=== PATIENT | male | born 1990 | race Caucasian/White ===

== ENCOUNTER 2016-11-23 13:02 | Inpatient (IN) | payer OTHER ==
[~2016-11-23] VITALS: Ht 177.8 cm; Wt 95.3 kg
[2016-11-23] MEDS ORDERED: HYDROmorphone INJ 1 MG/ML SYR IV STA ×4 (13:33→16:59)
[2016-11-23] MEDS ORDERED: ONDANSETRON INJ 2 MG/ML 2 ML VIAL IV STA ×2 (13:33→14:08)
[2016-11-23] MEDS ORDERED: VRPSR240 PO (13:36)
[2016-11-23] MEDS ORDERED: POTA1TAB97 PO (13:36)
[2016-11-23] MEDS ORDERED: CHLOTAB3 PO (13:36)
[2016-11-23] MEDS ORDERED: MAGN400T6 PO (13:36)
[2016-11-23] MEDS ORDERED: FURO40TA3 PO (13:36)
[2016-11-23 13:54] LABS: BASO % 0.2 %; BASO ABS # 0.02 K/uL (0-0.2); COMPLETE YES; EOS % 0.9 %; IG% 0.3 %; LYMPH % 10.9 %; LYMPH ABS # 1.23 K/uL (1.2-3.4); MEAN CELL VOLUME 80.6 fL (80-100); MEAN CORPUSCULAR HEMOGLOBIN 28.3 pg (25-34); MEAN CORPUSCULAR HGB CONC 35.1 g/dl (32-36); MEAN PLATELET VOLUME 10.8 fL (7.4-10.4); MONO % 4.2 %; NEUT % 83.5 %; PLATELET COUNT 201 K/uL (130-400); RED BLOOD COUNT 6.08 M/uL (4.7-6.1); WHITE BLOOD COUNT 11.29 K/uL (4.8-10.8)
--- NOTE | 2016-11-23 14:09 | DIAGNOSTIC IMAGING REPORT ---
LEFT SHOULDER MIN 2 VIEWS ROUTINE CLINICAL HISTORY: Evaluate for dislocation or fracture. COMPARISON: None FINDINGS: Alignment of the left acromioclavicular and glenohumeral joints is anatomic. No acute fracture is identified. IMPRESSION: No acute fracture or dislocation of the left shoulder. Electronically signed by: Jhony Perales M.D. 11/23/2016 2:07 PM Dictated Date/Time: 11/23/2016 2:07 PM
[2016-11-23 14:13] LABS: BUN/CREATININE RATIO 4.9 (10-20); CALCIUM 9.1 mg/dl (8.5-10.1); CREATININE 2.5 mg/dl (0.60-1.40); POTASSIUM 3.4 mmol/L (3.5-5.1)
--- NOTE | 2016-11-23 14:53 | DIAGNOSTIC IMAGING REPORT ---
CT LEFT SHOULDER NO CONTRAST CT DOSE: CLINICAL HISTORY: Left shoulder pain status post trauma. High clinical suspicion for fracture. Negative conventional radiographs. TECHNIQUE: Helical images were acquired in the transverse plane. Sagittal and coronal reformatted imaging was performed COMPARISON STUDY: Conventional radiographic study dated to FINDINGS: No pneumothorax is visualized. There are chronic clavicular joint appears unremarkable. No fractures or dislocations the proximal humerus are visualized. There is no evidence of significant joint effusion. There is no evidence for soft tissue hematoma. IMPRESSION: No fractures or dislocations identified. Electronically signed by: Marquise Tubbs M.D. 11/23/2016 2:51 PM Dictated Date/Time: 11/23/2016 2:49 PM
--- NOTE | 2016-11-23 14:57 | DIAGNOSTIC IMAGING REPORT ---
CT OF THE CERVICAL SPINE WITHOUT CONTRAST CLINICAL HISTORY: Fall. Evaluate for fracture. COMPARISON STUDY: No previous studies for comparison. TECHNIQUE: Helical axial images of the cervical spine were obtained without IV contrast. Sagittal and coronal reconstructions were viewed. FINDINGS: No acute fracture is identified. Slight rotation of C1 on C2 is likely positional. There is no prevertebral edema. Disc spaces are preserved. Facet joints are intact. Slight concavity of the superior endplates of T2, T3 and T4 is likely chronic. There is no acute fracture. IMPRESSION: 1. No acute cervical spine fracture. 2. Slight rotation of C1 on C2 which is likely positional. 3. Mild concavity of the superior endplates of T2, T3 and T4. Although age indeterminate, this is probably chronic. Electronically signed by: Jhony Perales M.D. 11/23/2016 2:56 PM Dictated Date/Time: 11/23/2016 2:49 PM
--- NOTE | 2016-11-23 15:57 | DIAGNOSTIC IMAGING REPORT ---
LUMBAR SPINE 5 VIEWS HISTORY: Trauma. Pain. eval for fx COMPARISON: None. FINDINGS: There is no fracture. No subluxation. Disc spaces are preserved. IMPRESSION: No fracture or subluxation within the lumbar spine. Electronically signed by: Silver Ivory M.D. 11/23/2016 3:55 PM Dictated Date/Time: 11/23/2016 3:55 PM
--- NOTE | 2016-11-23 15:59 | DIAGNOSTIC IMAGING REPORT ---
SINGLE VIEW PELVIS CLINICAL HISTORY: Fall. Low back and pelvic pain. FINDINGS: An AP pelvic radiograph is obtained. No prior studies are available for comparison at the time of dictation. The skeletal structures are well mineralized. No fracture is seen in the hips or bony pelvis. The joint spaces of the hips are preserved. The sacroiliac joints are normal. There is a nonobstructed abdominal bowel gas pattern. IMPRESSION: Unremarkable radiographic assessment of the hips and pelvis. Electronically signed by: Shay Blackwell M.D. 11/23/2016 3:58 PM Dictated Date/Time: 11/23/2016 3:55 PM
[2016-11-23] MEDS ORDERED: LABETALOL HCL IV 5 MG/ML 20ML IV STA (16:17)
[2016-11-23] MEDS ORDERED: POLYETHYLENE (MIRALAX) 17 GM PACK PO PRN (17:15)
[2016-11-23] MEDS ORDERED: ALUMINUM/MAGNESIUM/SIMETH (MAALOX MAX) 30 ML UDC PO PRN (17:15)
[2016-11-23] MEDS ORDERED: HYDROmorphone INJ 1 MG/ML SYR IV PRN (17:15)
[2016-11-23] MEDS ORDERED: MoRPHine SULFATE 4 MG/ML 1 ML CARP\\VIAL IV PRN (17:15)
[2016-11-23] MEDS ORDERED: POTASSIUM CHLORIDE 10 MEQ TABCR PO STA (17:19)
[2016-11-23] MEDS: HydrALAZINE HCL 20 MG/ML VIAL IV. PRN (17:44)
[2016-11-23] MEDS: ONDANSETRON INJ 2 MG/ML 2 ML VIAL IV PRN ×2 (17:52→23:51)
--- NOTE | 2016-11-23 18:05 | EMERGENCY ROOM VISIT NOTE ---
History Report prepared by Pete: Oralia Beltrán Under the Supervision of: Dr. Kamran Davalos M.D. First contact with patient: 13:28 Chief Complaint: SHOULDER DISLOCATION Stated Complaint: DISLOCATED L SHOULDER History of Present Illness The patient is a 26 year old male who presents to the Emergency Room with complaints of persistent left shoulder pain that began today prior to arrival. He currently rates his discomfort as a 9/10 in severity. The patient states that today he slipped and fell on sawdust and dislocated his left shoulder. He states that when he fell, it was on to his out-stretched arm. The patient states that his uncle reduced his shoulder for him, but he states that he is still experiencing pain. He states his uncle pulled very hard and did it about 3 or 4 times. He states that he has had a previous shoulder dislocation in 2007. The patient states that he is noticing shooting pain from his left shoulder and into his neck, but denies any neck problems. He states that he typically experiences numbness in his left forearm, but states that today he is noticing numbness to his left hand and left shoulder. The patient states that that the numbness has been worsening since the injury. He additionally notes nausea secondary to the pain. The patient denies any head trauma, headache, neck injury, or back injury. The patient notes a history of Stage IV Kidney Failure and Hypertension. He states that he is currently on Verapamil and is also on Lasix. He states he was on 4 other hypertensive medications but was taken off them several months ago. Source of History: patient Onset: today prior to arrival Position: shoulder (left) Symptom Intensity: 9/10 Quality: other (shooting) Timing: other (persistent) Associated Symptoms: + nausea, + numbness (left shoulder, left hand) Review of Systems See HPI for pertinent positives & negatives. A total of 10 systems reviewed and were otherwise negative. Past Medical & Surgical Medical Problems: (1) ARF (acute renal failure) (2) Chronic renal disease, stage IV (3) Hypertension (4) Hypertensive emergency Family History No pertinent family history stated. Social History Smoking Status: Current Every Day Smoker Marital Status: single Occupation Status: unemployed Current/Historical Medications Scheduled Furosemide (Lasix), 40 MG PO BID Magnesium Oxide (Mag-Ox), 400 MG PO DAILY Potassium Chloride (K-Tab), 40 MEQ PO DAILY Verapamil HCl (Verapamil HCl ER), 240 MG PO DAILY Scheduled PRN Chlorzoxazone (Parafon Forte Dsc), 500 MG PO Q4H PRN for Muscle Spasms Allergies Coded Allergies: Cefaclor (Verified Allergy, Unknown, ., 11/23/16) Codeine (Verified Allergy, Unknown, ., 11/23/16) Ketorolac Tromethamine (Verified Allergy, Unknown, ., 11/23/16) Penicillins (Verified Allergy, Unknown, ., 11/23/16) Tramadol (Verified Allergy, Unknown, ., 11/23/16) Physical Exam Vital Signs Date Time Temp Pulse Resp B/P Pulse Ox O2 Delivery O2 Flow Rate FiO2 11/23/16 17:02 91 12 11/23/16 16:59 151/115 11/23/16 16:49 155/139 11/23/16 16:45 165/121 11/23/16 16:44 77 11/23/16 16:39 176/112 11/23/16 16:01 91 20 185/126 97 11/23/16 14:01 102 18 170/128 96 Room Air 11/23/16 13:26 181/159 11/23/16 13:14 37.2 115 18 218/138 97 Room Air Physical Exam Constitutional: Vital signs reviewed. Severely hypertensive. Eyes: Pupils are equal round reactive to light. Conjunctiva are noninjected. ENT: Pharynx is clear without erythema or exudate. Mucous membranes are moist. Neck supple without meningeal signs. Respiratory: Clear to auscultation bilaterally. Breath sounds are equal bilaterally. Cardiovascular: Tachycardic. Regular rhythm. No rubs or gallops. GI: Soft, nondistended and nontender. Bowel sounds are present. Musculoskeletal: Diffuse tenderness to the left shoulder without deformity. Numbness to the deltoid muscle. The mid forearm and the entire left hand. Normal distal pulses. Unable to assess motor functions secondary to pain. Integumentary: No cyanosis. Neurological: The patient is awake and alert. No focal deficits. Psychiatric: Anxious. Medical Decision & Procedures ER Provider Diagnostic Interpretation: X-ray results as stated below per interpretation by me and the radiologist: Other radiology results as stated below per my review and the radiologist's interpretation: LEFT SHOULDER MIN 2 VIEWS ROUTINE CLINICAL HISTORY: Evaluate for dislocation or fracture. COMPARISON: None FINDINGS: Alignment of the left acromioclavicular and glenohumeral joints is anatomic. No acute fracture is identified. IMPRESSION: No acute fracture or dislocation of the left shoulder. Electronically signed by: Jhony Perales M.D. 11/23/2016 2:07 PM Dictated Date/Time: 11/23/2016 2:[address] LEFT SHOULDER NO CONTRAST CT DOSE: CLINICAL HISTORY: Left shoulder pain status post trauma. High clinical suspicion for fracture. Negative conventional radiographs. TECHNIQUE: Helical images were acquired in the transverse plane. Sagittal and coronal reformatted imaging was performed COMPARISON STUDY: Conventional radiographic study dated to FINDINGS: No pneumothorax is visualized. There are chronic clavicular joint appears unremarkable. No fractures or dislocations the proximal humerus are visualized. There is no evidence of significant joint effusion. There is no evidence for soft tissue hematoma. IMPRESSION: No fractures or dislocations identified. Electronically signed by: Marquise Tubbs M.D. 11/23/2016 2:51 PM Dictated Date/Time: 11/23/2016 2:[address] OF THE CERVICAL SPINE WITHOUT CONTRAST CLINICAL HISTORY: Fall. Evaluate for fracture. COMPARISON STUDY: No previous studies for comparison. TECHNIQUE: Helical axial images of the cervical spine were obtained without IV contrast. Sagittal and coronal reconstructions were viewed. FINDINGS: No acute fracture is identified. Slight rotation of C1 on C2 is likely positional. There is no prevertebral edema. Disc spaces are preserved. Facet joints are intact. Slight concavity of the superior endplates of T2, T3 and T4 is likely chronic. There is no acute fracture. IMPRESSION: 1. No acute cervical spine fracture. 2. Slight rotation of C1 on C2 which is likely positional. 3. Mild concavity of the superior endplates of T2, T3 and T4. Although age indeterminate, this is probably chronic. Electronically signed by: Jhony Perales M.D. 11/23/2016 2:56 PM Dictated Date/Time: 11/23/2016 2:49 PM SINGLE VIEW PELVIS CLINICAL HISTORY: Fall. Low back and pelvic pain. FINDINGS: An AP pelvic radiograph is obtained. No prior studies are available for comparison at the time of dictation. The skeletal structures are well mineralized. No fracture is seen in the hips or bony pelvis. The joint spaces of the hips are preserved. The sacroiliac joints are normal. There is a nonobstructed abdominal bowel gas pattern. IMPRESSION: Unremarkable radiographic assessment of the hips and pelvis. Electronically signed by: Shay Blackwell M.D. 11/23/2016 3:58 PM Dictated Date/Time: 11/23/2016 3:55 PM LUMBAR SPINE 5 VIEWS HISTORY: Trauma. Pain. eval for fx COMPARISON: None. FINDINGS: There is no fracture. No subluxation. Disc spaces are preserved. IMPRESSION: No fracture or subluxation within the lumbar spine. Electronically signed by: Silver Ivory M.D. 11/23/2016 3:55 PM Dictated Date/Time: 11/23/2016 3:55 PM Laboratory Results 11/23/16 13:35 Red Blood Count 6.08, Mean Corpuscular Volume 80.6, Mean Corpuscular Hemoglobin 28.3, Mean Corpuscular Hemoglobin Concent 35.1, Mean Platelet Volume 10.8, Neutrophils (%) (Auto) 83.5, Lymphocytes (%) (Auto) 10.9, Monocytes (%) (Auto) 4.2, Eosinophils (%) (Auto) 0.9, Basophils (%) (Auto) 0.2, Neutrophils # (Auto) 9.44, Lymphocytes # (Auto) 1.23, Monocytes # (Auto) 0.47, Eosinophils # (Auto) 0.10, Basophils # (Auto) 0.02 11/23/16 13:35 Test 11/23/16 13:35 White Blood Count 11.29 K/uL (4.8-10.8) Red Blood Count 6.08 M/uL (4.7-6.1) Hemoglobin 17.2 g/dL (14.0-18.0) Hematocrit 49.0 % (42-52) Mean Corpuscular Volume 80.6 fL (80-100) Mean Corpuscular Hemoglobin 28.3 pg (25-34) Mean Corpuscular Hemoglobin Concent 35.1 g/dl (32-36) Platelet Count 201 K/uL (130-400) Mean Platelet Volume 10.8 fL (7.4-10.4) Neutrophils (%) (Auto) 83.5 % Lymphocytes (%) (Auto) 10.9 % Monocytes (%) (Auto) 4.2 % Eosinophils (%) (Auto) 0.9 % Basophils (%) (Auto) 0.2 % Neutrophils # (Auto) 9.44 K/uL (1.4-6.5) Lymphocytes # (Auto) 1.23 K/uL (1.2-3.4) Monocytes # (Auto) 0.47 K/uL (0.11-0.59) Eosinophils # (Auto) 0.10 K/uL (0-0.5) Basophils # (Auto) 0.02 K/uL (0-0.2) RDW Standard Deviation 39.6 fL (36.4-46.3) RDW Coefficient of Variation 13.6 % (11.5-14.5) Immature Granulocyte % (Auto) 0.3 % Immature Granulocyte # (Auto) 0.03 K/uL (0.00-0.02) Anion Gap 9.0 mmol/L (3-11) Est Creatinine Clear Calc Drug Dose 52.0 ml/min Estimated GFR () 39.3 Estimated GFR (Non- 33.9 BUN/Creatinine Ratio 4.9 (10-20) Calcium Level 9.1 mg/dl (8.5-10.1) Laboratory results as reviewed by me. Medications Administered Medications (Trade) Dose Ordered Sig/Bulmaro Route Start Time Stop Time Status Last Admin Dose Admin Hydromorphone HCl (Dilaudid Inj) 0.5 mg NOW STAT IV 11/23/16 13:33 11/23/16 13:34 DC 11/23/16 13:44 0.5 MG Ondansetron HCl (Zofran Inj) 4 mg NOW STAT IV 11/23/16 13:33 11/23/16 13:34 DC 11/23/16 13:43 4 MG Hydromorphone HCl (Dilaudid Inj) 0.5 mg NOW STAT IV 11/23/16 14:08 11/23/16 14:09 DC 11/23/16 14:20 0.5 MG Ondansetron HCl (Zofran Inj) 4 mg NOW STAT IV 11/23/16 14:08 11/23/16 14:09 DC 11/23/16 14:18 4 MG Hydromorphone HCl (Dilaudid Inj) 0.5 mg NOW STAT IV 11/23/16 15:20 11/23/16 15:21 DC 11/23/16 16:02 0.5 MG Labetalol HCl (Normodyne IV) 10 mg NOW STAT IV 11/23/16 16:17 11/23/16 16:18 DC 11/23/16 16:41 10 MG Hydromorphone HCl (Dilaudid Inj) 0.5 mg NOW STAT IV 11/23/16 16:59 11/23/16 17:00 DC 11/23/16 17:05 0.5 MG Ondansetron HCl (Zofran Inj) 4 mg Q6H PRN IV 11/23/16 17:15 12/23/16 17:14 11/23/16 17:52 4 MG Hydromorphone HCl (Dilaudid Inj) 1 mg Q2H PRN IV 11/23/16 17:15 12/07/16 17:14 11/23/16 17:44 1 MG Potassium Chloride (Klor-Con M10) 20 meq NOW STAT PO 11/23/16 17:19 11/23/16 17:35 DC 11/23/16 17:52 20 MEQ Hydralazine HCl (HydrALAZINE INJ) 25 mg Q6H PRN IV. 11/23/16 17:30 12/23/16 17:29 11/23/16 17:44 25 MG ECG Indication: other Rate (beats per minute): 104 Rhythm: sinus tachycardia Findings: no acute ischemic change, no ectopy Comparison ECG Date: no prior available ED Course 1329: The patient was evaluated in room B1. A complete history and physical exam was performed. 1333: Ordered Zofran Inj 4 mg IV, Dilaudid Inj 0.5 mg IV. 1408: I reevaluated the patient and his pain worsened after the x-ray. Ordered Zofran Inj 4 mg IV, Dilaudid Inj 0.5 mg IV. 1424: I reevaluated the patient and he is going to a CT scan. 1519: I reevaluated the patient and he cannot feel his entire left arm and he has difficulty moving it. The patient is unsure if it is from pain or if he cannot use it. I discussed the lab findings and states that his last creatinine was 2.1 a week ago. He is additionally complaining of back and buttock pain. 1520: Ordered Dilaudid Inj 0.5 mg IV. 1617: I reevaluated the patient and his blood pressure is 176/130 and he still cannot move his left arm. Ordered Labetalol HCl 10 mg IV. 1625: I discussed the patients case with Soctt Guillermo [facility] YIEMI. He is going to talk to Dr. El about the case. 1640: I rediscussed the patients case with Scott Guill[facility] YEIMI. He states that Dr. El recommended an nonemergent MRI of the neck and shoulder to rule out brachial plexus injury. 1645: I reevaluated the patient and he is still experiencing hypertension. I discussed the treatment plan with him and he verbalized complete understanding and agreement. He will be evaluated for further treatment. 1658: I discussed the patients case with Dr. Tom [facility] [place]. He is going to evaluate the patient for further treatment. 1659: Ordered Dilaudid Inj 0.5 mg IV. Medical Decision This is a 26-year-old male who presents with left shoulder pain, numbness to the left arm and high blood pressure. Differential diagnosis includes shoulder dislocation, fracture, brachial plexus injury, cervical injury, hypertensive emergency. I did perform a limited focused review of portions of the patient's old chart on the electronic medical record. The patient has had no prior visits I did evaluate the patient as noted above. The patient fell today after slipping on sawdust. He fell onto his left outstretched hand. He felt like his arm was dislocated. He did have numbness to the hand and arm and his uncle attempted to relocate the arm about 3 or 4 times. He did so very forcefully and he believes that he was able to get his shoulder back in. He continues have significant pain to the left shoulder but denies any other injury. On examination his distal pulses are intact but he has numbness to his left hand, forearm and upper arm as well. He is unable to cooperate with motor examination. He is very weakly able to give a thumbs up, make an okay sign and spread his fingers apart. IV access was established. The patient was placed on a continuous quality assurance monitor chassis. He is severely hypertensive. It is unclear whether this is secondary to pain. He was given Dilaudid 0.5 mg IV and Zofran IV. I did order and personally review the patient's x-rays as described above. There does not appear to be any fracture or dislocation. The patient had persistent pain and neurologic deficits. I did order a CT of the cervical spine and shoulder. I did review the images myself as well as the radiology report as described above. There is no acute abnormality on CT scanning. I did discuss the case with the [facility] who suggested a nonemergent MRI of the neck and shoulder to rule out brachial plexus injury. I did order and review the patient's blood work as noted in the electronic medical record. He does have a creatinine of 2.5. He states that his baseline is about 1.8 although about a week ago it was 2.1. I did treat the patient with multiple doses of Dilaudid IV. He is also given labetalol IV and his blood pressure remained significantly elevated and he continues have pain. He will be hospitalized for further management of his severe hypertension, assessment of his kidney function as well as pain control. He will have an MRI once he is able to tolerate it. I did discuss the case with the hospitalist and case loader operator. Consults Time Called: 1620 Consulting Physician: Scott Guillermo [facility] YEIMI Returned Call: [phone] I discussed the patients case with Scott Guillermo [facility] TERRY Aponte. He is going to talk to Dr. El about the case. Additional Consults: Time Called: 1650 Consulted Physician: TEOFILO Solano Returned Call: [phone] Additional Comments: I discussed the patients case with TEOFILO Solano. He is going to evaluate the patient for further treatment. Impression Primary Impression: Hypertensive emergency Additional Impressions: [id number] kidney injury Left shoulder pain Left arm numbness Left arm weakness Critical Care I have personally spent more than 30 minutes of critical care time in the direct management of this patient. This includes bedside care, interpretation of diagnostic studies and testing, discussion with consultants and patient, and other required patient management activities. This time is in excess of all separately billable procedures. Scribe Attestation The scribe's documentation has been prepared under my direct and personally reviewed by me in its entirety. I confirm that the note above accurately reflects all work, treatment, procedures, and medical decision making performed by me. Departure Information Dispostion Being Evaluated By Hospitalist Problem Qualifiers
[2016-11-23 18:07] VITALS: O2SAT 95
[2016-11-23 18:35] LABS: MAGNESIUM 2.1 mg/dl (1.8-2.4); PHOSPHORUS 1.6 mg/dl (2.5-4.9); THYROID STIMULATING HORMONE 0.782 uIu/ml (0.300-4.500)
[2016-11-23 18:47] VITALS: BP 180/125; PULSE 108; TEMP 36.8; Ht 177.8 cm; Wt 95.3 kg
[2016-11-23] MEDS ORDERED: HYDROmorphone INJ 2 MG/ML SYR/VIAL ONE (19:30)
--- NOTE | 2016-11-23 19:43 | HISTORY & PHYSICAL EXAMINATION ---
DATE OF ADMISSION: 11/23/2016 CHIEF COMPLAINT: Left shoulder pain. HISTORY OF PRESENT ILLNESS: This is a 26-year-old male who presents to Emergency Room complaining of left shoulder pain that started this morning. 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 Currently, the patient is still experiencing pain, about 8-9/10 in severity with associated numbness and weakness in his left hand. The patient complains of losing sensation in his left hand. He stated that he also had a previous shoulder dislocation in 2007. About 6 years ago, he was transferred to [facility] due to receiving IV infusions of potassium, resulting in compartment syndrome, after which he had some problems in his left forearm. He denies any neck pain, any fever. He stated that he typically experiences numbness in his left forearm, but today he was not noticing numbness spreading up to his left shoulder. He also has associated nausea secondary to pain. He denies any head trauma, neck injury, back injury. He mentions that he has a stage IV chronic kidney disease with baseline creatinine of 1.8 and the last creatinine was checked 2 weeks ago, was 2.0. He was followed by 2 nephrologists, one was Dr. Flowers at [place] and Dr. Way at [place], [place] for kidney failure and hypertension. The patient states that he is currently on verapamil and Lasix to treat his hypertension. REVIEW OF SYSTEMS: Negative except as above. Ten out of 14 systems were reviewed. PAST MEDICAL HISTORY: Chronic kidney disease stage IV, hypertension, shoulder dislocation. FAMILY HISTORY: Significant for coronary artery disease, diabetes, cancer. SOCIAL HISTORY: Smokes between 4 cigarettes to 20 cigarettes a day, depending on the day. 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 ALLERGIES: HE IS ALLERGIC TO CEFACLOR, CODEINE, KETOROLAC, PENICILLIN, TRAMADOL. CURRENT MEDICATIONS: He is on furosemide 40 mg p.o. b.i.d., magnesium oxide 400 mg p.o. daily, potassium 40 mEq p.o. daily, verapamil 240 mg p.o. daily, chlorzoxazone 500 mg p.o. q. 4 hours p.r.n. muscle spasm. PHYSICAL EXAMINATION: VITAL SIGNS: Temperature 37.2, pulse 77, respirations 20, blood pressure 185/126, 97% on room air. GENERAL: In mild distress. HEENT: Normocephalic, atraumatic. PERRLA, EOMI. Mouth moist, no lesions. NECK: No JVD. Trachea midline. Thyroid is not enlarged. LUNGS: Clear to auscultation bilateral. No wheezes, no rhonchi. HEART: S1, S2, RRR. ABDOMEN: Soft, nontender, nondistended. Bowel sounds present bilateral. MUSCULOSKELETAL: Diffuse tenderness in the left shoulder and numbness to deltoid muscle. He is wearing a sling to his left arm. He has normal distal pulses; however, unable to assess his motor function because of pain and the fact that he has a sling; however, he has no sensation to his fingers. He has no CVA tenderness. SKIN: No rash. No jaundice. PSYCHIATRIC: Mood and judgment are normal. DIAGNOSTIC INTERPRETATION: CT left shoulder with no contrast, no fractures or dislocations. X-ray, no acute fracture or dislocations. Pelvis was unremarkable radiographic assessment. Lumbar spine imaging no fracture or subluxation. LABS: White count of 11.2, hemoglobin of 7.2, platelets 201. Sodium 143, potassium 3.4, chloride 108, CO2 26, BUN of 12, creatinine of 2.5 and his baseline of 1.8, glucose of 94, anion gap of 9.0, calcium 9.1. EKG was not done. ASSESSMENT AND PLAN: A 26-year-old male who comes with left shoulder pain after falling down. 1. Left shoulder pain, suspect left brachial plexus injury. IV analgesia. Consult orthopedics. Check MRI of his left shoulder. Physical therapy evaluation and treatment, continue wearing a sling. 2. Hypertensive emergency with underlying acute renal failure. We will hold his Lasix. We will avoid any nephrotoxic medicines. We will start him on Coreg 3.125 mg p.o. b.i.d. and hydralazine 25 mg IV q. 6 hours p.r.n. systolic blood pressure above 160 mmhg. Note that patient came with blood pressure of 218/138 mmhg and according to guidelines, need not to decrease blood pressure more than 20% in the first 6 hours. Therefore, we will shoot for a blood pressure currently no less than 160 mmhg and then gradually decrease it to more appropriate levels. Continue verapamil 240 mg p.o. daily. 3. Acute renal failure on top of chronic kidney disease stage IV, hold Lasix. Consult nephrology. Check urinalysis. Check random urine creatinine, microalbuminuria, urine electrolytes, magnesium, creatine phosphokinase, phosphorus, TSH. 4. Nicotine addiction. Start patient on 14 mg of patch, take off at night. 5. Deep venous thrombosis prophylaxis is not required. The patient is a full code. TIME SPENT ON DOING THIS ADMISSION: 40 minutes. GYPSY
[2016-11-23 20:27] VITALS: BP 198/133
[2016-11-23] MEDS: CARVEDILOL 3.125 MG TAB PO SCH (20:29)
[2016-11-23] MEDS ORDERED: LORAZEPAM 2 MG/ML 1 ML VIAL IV STA (20:41)
[2016-11-23 21:15] LABS: URINE APPEARANCE CLEAR (CLEAR); URINE BILIRUBIN NEG (NEG); URINE COLOR YELLOW; URINE NITRITE NEG (NEG); URINE SPECIFIC GRAVITY 1.005 (1.000-1.030); UROBILINOGEN NEG (NEG); ZZUR CULT IF INDIC CLEAN CATCH NO
[2016-11-23 21:16] LABS: MANUAL MICROSCOPIC REQUIRED? NO; REVIEW REQ? NO
[2016-11-23 21:35] VITALS: BP 191/132
[2016-11-23] MEDS: HYDROmorphone INJ 1 MG/ML SYR IV PRN ×2 (21:41→23:41)
[2016-11-23] MEDS: CHLORZOXAZONE 500 MG TAB PO PRN (23:00)
[2016-11-23] MEDS: ACETAMINOPHEN 325 MG TAB PO PRN (23:13)
[2016-11-23 23:47] VITALS: BP 187/99; PULSE 109; TEMP 36.7; O2SAT 96
[2016-11-23] MEDS ORDERED: DiphenhydrAMINE HCL 50 MG/ML VIAL IV STA (23:54)
[2016-11-23] MEDS ORDERED: DiphenhydrAMINE HCL 50 MG/ML VIAL ONE (23:59)
[2016-11-24] VITALS (9 sets, daily range): BP systolic 155–204; BP diastolic 93–154; PULSE 86–112; TEMP 36.5–37.1; O2SAT 94–99
[2016-11-24] MEDS: HydrALAZINE HCL 20 MG/ML VIAL IV. PRN (00:02)
[2016-11-24] MEDS ORDERED: LORAZEPAM 2 MG/ML 1 ML VIAL ONE (01:28)
[2016-11-24] MEDS ORDERED: NURSING VERBAL MED ORDER ONE (01:30)
[2016-11-24] MEDS: HYDROmorphone INJ 1 MG/ML SYR IV PRN ×2 (01:39→07:47)
[2016-11-24] MEDS ORDERED: LORAZEPAM 2 MG/ML 1 ML VIAL IV STA (01:44)
[2016-11-24] MEDS ORDERED: DiphenhydrAMINE HCL 50 MG/ML VIAL IV STA (02:58)
--- NOTE | 2016-11-24 03:24 | Progress Note ---
Progress Note reviewed PDMP Patient has multiple prescriptions from [place], [place], [place] etc suspicious for opiate abuse
[2016-11-24 04:22] LABS: BENZODIAZEPINE, URINE NEG (NEG); COCAINE,URINE NEG (NEG); PHENCYCLIDINE, URINE NEG (NEG)
[2016-11-24 07:13] LABS: BASO % 0.2 %; BASO ABS # 0.02 K/uL (0-0.2); COMPLETE YES; EOS % 1.8 %; HEMATOCRIT 46.6 % (42-52); IG% 0.3 %; LYMPH % 14.1 %; LYMPH ABS # 1.61 K/uL (1.2-3.4); MEAN CELL VOLUME 81.6 fL (80-100); MEAN CORPUSCULAR HGB CONC 34.3 g/dl (32-36); MEAN PLATELET VOLUME 10.6 fL (7.4-10.4); MONO % 9.8 %; NEUT % 73.8 %; PLATELET COUNT 163 K/uL (130-400); RED BLOOD COUNT 5.71 M/uL (4.7-6.1); WHITE BLOOD COUNT 11.42 K/uL (4.8-10.8)
[2016-11-24 07:39] LABS: BUN/CREATININE RATIO 5.4 (10-20); CALCIUM 8.7 mg/dl (8.5-10.1); CREATININE 2.4 mg/dl (0.60-1.40); POTASSIUM 3.7 mmol/L (3.5-5.1)
[2016-11-24] MEDS: VERAPAMIL HCL 240 MG TABCR PO SCH (07:48)
[2016-11-24] MEDS: CARVEDILOL 3.125 MG TAB PO SCH (07:49)
[2016-11-24] MEDS: NICOTINE 14 MG/24 HR TDSY TD SCH (07:49)
--- NOTE | 2016-11-24 08:11 | DIAGNOSTIC IMAGING REPORT ---
MRI OF THE LEFT SHOULDER CLINICAL HISTORY: Left shoulder dislocation. COMPARISON STUDY: CT scan of left shoulder dated 11/23/2016. TECHNIQUE: MRI of the left shoulder was performed utilizing various T1 and T2 weighted sequences in the axial, sagittal, coronal planes. IV contrast was not administered for this examination. The examination is degraded by motion artifact. FINDINGS: Rotator cuff: There is mild tendinopathy of the supraspinatous tendon. The supraspinatous and infraspinatus tendons appear intact. The teres minor and subscapularis tendons are preserved. There is trace subdeltoid bursal fluid. The acromioclavicular joint is unremarkable. Biceps tendon: The long head of the biceps tendon is normal in signal intensity and located within the bicipital groove. The anchor is maintained. Labrum: There is a large SLAP tear of the glenoid labrum with detachment of the anterior labrum. A soft tissue Bankart lesion is identified with periosteal stripping from the anterior glenoid. Shoulder joint: There is trace joint effusion. The articular cartilage over the glenoid appears maintained. There is minimal edema identified in the posterior humeral head, which could represent minimal contusion versus mild arthritic change. No Hill-Sachs lesion is seen. Musculature and soft tissues: The musculature of the shoulder is normal in bulk and signal intensity. No atrophy is seen. IMPRESSION: 1. Significantly motion degraded examination. 2. The rotator cuff appears intact. 3. There is a large SLAP tear of the glenoid labrum. 4. There is evidence of a soft tissue Bankart lesion with detachment of the anterior labrum and periosteal stripping. 5. Minimal contusion is suggested in the posterior humeral head. No Hill-Sachs lesion is seen. Electronically signed by: Shay Blackwell M.D. 11/24/2016 8:10 AM Dictated Date/Time: 11/24/2016 8:03 AM
[2016-11-24] MEDS ORDERED: POTASSIUM CHLORIDE 20 MEQ TABCR PO SCH (09:00)
[2016-11-24] MEDS ORDERED: MAGNESIUM OXIDE 400 MG TAB PO SCH (09:00)
[2016-11-24] MEDS ORDERED: LABETALOL HCL IV 5 MG/ML 20ML ONE (09:44)
[2016-11-24] MEDS ORDERED: LABETALOL HCL IV 5 MG/ML 20ML IV STA (09:45)
--- NOTE | 2016-11-24 09:54 | Medical Consult ---
Consultation Date of Consultation: Nov 24, 2016. Attending Physician: Daniel Andrew D.O. 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 Sustained a fall on an outstretched arm yesterday injury his left upper extremity. He sustained a dislocation while wrestling in high school and was successfully reduced by the ATC with one attempt. No further issues with his upper extremity since that occurrence. Yesterday's injury resulted in a left shoulder dislocation. His uncle was a former medic and attempted the reduction. Four attempts were made to reduce the left shoulder and was successful the final attempt. Since his reduction yesterday he has decreased sensation in the left upper extremity from the elbow to the fingers. He reports having some feeling in the proximal arm. His past medical history is rather lengthy and complicated with history of kidney failure, autoimmune disease, CVA x 2, and is currently hypertensive at 189/113, leading to this admission. 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 The patient is unable to determine whether left lower extremity weakness is currently due to new findings or was baseline for him in the past CVAs. Past Medical/Surgical History Medical Problems: (1) [id number] kidney injury Status: Acute (2) Left arm numbness Status: Acute (3) Left arm weakness Status: Acute (4) Left shoulder pain Status: Acute Social History Smoking Status: Current Every Day Smoker Marital Status: single Occupation Status: unemployed Allergies Coded Allergies: Cefaclor (Verified Allergy, Unknown, ., 11/23/16) Codeine (Verified Allergy, Unknown, ., 11/23/16) Ketorolac Tromethamine (Verified Allergy, Unknown, ., 11/23/16) Penicillins (Verified Allergy, Unknown, ., 11/23/16) Tramadol (Verified Allergy, Unknown, ., 11/23/16) Current Inpatient Medications Current Inpatient Medications Medications (Trade) Dose Ordered Sig/Bulmaro Route Start Time Stop Time Status Last Admin Dose Admin Chlorzoxazone (Paraflex Tab) 500 mg Q4H PRN PO 11/23/16 17:15 12/23/16 17:14 11/23/16 23:00 500 MG Magnesium Oxide (Mag-Ox Tab) 400 mg DAILY PO 11/24/16 09:00 12/24/16 08:59 11/24/16 07:48 400 MG Verapamil HCl (Calan-Sr Tab) 240 mg DAILY PO 11/24/16 09:00 12/24/16 08:59 11/24/16 07:48 240 MG Potassium Chloride (Klor-Con Tab) 40 meq DAILY PO 11/24/16 09:00 12/24/16 08:59 11/24/16 07:48 40 MEQ Acetaminophen (Tylenol Tab) 650 mg Q4H PRN PO 11/23/16 17:15 12/23/16 17:14 11/23/16 23:13 650 MG Al Hydrox/Mg Hydrox/Simethicone (Maalox Max Susp) 15 ml Q4H PRN PO 11/23/16 17:15 12/23/16 17:14 Ondansetron HCl (Zofran Inj) 4 mg Q6H PRN IV 11/23/16 17:15 12/23/16 17:14 11/23/16 23:51 4 MG Morphine Sulfate (MoRPHine SULFATE INJ) 4 mg Q2H PRN IV 11/23/16 17:15 12/07/16 17:14 11/23/16 19:04 4 MG Polyethylene (Miralax Powder Packet) 17 gm DAILY PRN PO 11/23/16 17:15 12/23/16 17:14 Hydralazine HCl (HydrALAZINE INJ) 25 mg Q6H PRN IV. 11/23/16 17:30 12/23/16 17:29 11/24/16 00:02 25 MG Carvedilol (Coreg Tab) 3.125 mg BID PO 11/23/16 21:00 12/23/16 20:59 11/24/16 07:49 3.125 MG Nicotine (Nicoderm Cq 14MG Patch) 1 patch QAM TD 11/24/16 09:00 12/24/16 08:59 Miscellaneous (Remove Nicoderm Patch) 1 ea HS N/A 11/23/16 21:00 12/23/16 20:59 Hydromorphone HCl 2 mg 2 mg Q2H PRN IV 11/23/16 21:15 12/07/16 21:14 11/24/16 07:47 2 MG Promethazine HCl/ Sodium Chloride (Phenergan Inj/ Nss 50ml) 50.5 ml @ 204 mls/hr Q6H PRN IV 11/24/16 00:00 12/24/16 00:00 Review of Systems The patient currently denies headache, chest pain, shortness of breath, fever, chills, night sweats, weight loss/gain, calf pain, numbness or tingling in the lower extremities Constitutional: + problem reported (left upper extremity ), + weakness, No chills, No fatigue, No fever, No sweats, No weight loss Respiratory: No cough, No dyspnea at rest, No dyspnea on exertion, No hemoptysis, No problem reported, No shortness of breath, No sputum, No wheezing Cardiovascular: No PND, No chest pain, No claudication, No edema, No orthopnea , No palpitations, No problem reported Musculoskeletal: + joint pain (left shoulder pain s/p reduction attempt x 4), No calf pain, No muscle pain, No problem reported, No swelling Integumentary: + problem reported (multiple tattoos noted on upper/lower extremities ), No bleeding, No color change, No itch, No new/changing skin lesions, No rash Physical Exam Date Time Temp Pulse Resp B/P Pulse Ox O2 Delivery O2 Flow Rate FiO2 11/24/16 07:40 36.9 112 16 191/125 98 Room Air 11/24/16 04:00 Room Air 11/24/16 03:30 36.5 110 19 178/108 94 Room Air 11/24/16 00:00 Room Air 11/23/16 23:47 36.7 109 22 187/99 96 Room Air 11/23/16 21:35 191/132 11/23/16 20:27 198/133 11/23/16 20:01 Room Air 11/23/16 18:47 36.8 108 16 180/125 Room Air 11/23/16 18:08 129/112 11/23/16 18:07 111 15 95 11/23/16 17:58 172/133 11/23/16 17:48 169/117 11/23/16 17:39 173/124 11/23/16 17:37 85 15 96 11/23/16 17:29 150/122 11/23/16 17:19 171/110 11/23/16 17:09 162/116 11/23/16 17:07 97 20 97 11/23/16 17:02 91 12 11/23/16 16:59 151/115 11/23/16 16:49 155/139 11/23/16 16:45 165/121 11/23/16 16:44 77 11/23/16 16:39 176/112 11/23/16 16:01 91 20 185/126 97 11/23/16 14:01 102 18 170/128 96 Room Air 11/23/16 13:26 181/159 11/23/16 13:14 37.2 115 18 218/138 97 Room Air General Appearance: + mild distress Eyes: + pertinent finding (Droopy left eyelid) Extremities/Musculoskelatal: normal inspection, normal capillary refill, no pedal edema, + pertinent finding (mild tenderness left cervical paraspinal muscle tenderness, left shoulder tendernss globally, tender ulnar nerve/groove, notable cervical pain with pass ROM left wrist, decreased ROM of the left elbow , motor function revealed but certainly decreased comparted to the contralateral extremity, no gross deformity on inspection, ) Neurologic/Psych: alert, oriented x 3, + sensory deficit (distal left upper extremity, reports no feeling appreciated with light touch from the elbow distally, light toch over the deltoid is appreciated yet decreased) Skin: normal color, warm/dry, no rash Laboratory Results Last 24 Hours Test 11/23/16 13:35 11/23/16 20:45 11/24/16 03:15 11/24/16 06:53 White Blood Count 11.29 K/uL 11.42 K/uL Red Blood Count 6.08 M/uL 5.71 M/uL Hemoglobin 17.2 g/dL 16.0 g/dL Hematocrit 49.0 % 46.6 % Mean Corpuscular Volume 80.6 fL 81.6 fL Mean Corpuscular Hemoglobin 28.3 pg 28.0 pg Mean Corpuscular Hemoglobin Concent 35.1 g/dl 34.3 g/dl Platelet Count 201 K/uL 163 K/uL Mean Platelet Volume 10.8 fL 10.6 fL Neutrophils (%) (Auto) 83.5 % 73.8 % Lymphocytes (%) (Auto) 10.9 % 14.1 % Monocytes (%) (Auto) 4.2 % 9.8 % Eosinophils (%) (Auto) 0.9 % 1.8 % Basophils (%) (Auto) 0.2 % 0.2 % Neutrophils # (Auto) 9.44 K/uL 8.43 K/uL Lymphocytes # (Auto) 1.23 K/uL 1.61 K/uL Monocytes # (Auto) 0.47 K/uL 1.12 K/uL Eosinophils # (Auto) 0.10 K/uL 0.21 K/uL Basophils # (Auto) 0.02 K/uL 0.02 K/uL RDW Standard Deviation 39.6 fL 41.9 fL RDW Coefficient of Variation 13.6 % 14.2 % Immature Granulocyte % (Auto) 0.3 % 0.3 % Immature Granulocyte # (Auto) 0.03 K/uL 0.03 K/uL Sodium Level 143 mmol/L 141 mmol/L Potassium Level 3.4 mmol/L 3.7 mmol/L Chloride Level 108 mmol/L 108 mmol/L Carbon Dioxide Level 26 mmol/L 25 mmol/L Anion Gap 9.0 mmol/L 8.0 mmol/L Blood Urea Nitrogen 12 mg/dl 13 mg/dl Creatinine 2.50 mg/dl 2.40 mg/dl Est Creatinine Clear Calc Drug Dose 52.0 ml/min 84.6 ml/min Estimated GFR () 39.3 41.3 Estimated GFR (Non- 33.9 35.6 BUN/Creatinine Ratio 4.9 5.4 Random Glucose 94 mg/dl 96 mg/dl Calcium Level 9.1 mg/dl 8.7 mg/dl Phosphorus Level 1.6 mg/dl Magnesium Level 2.1 mg/dl Total Creatine Kinase 114 U/L Thyroid Stimulating Hormone (TSH) 0.782 uIu/ml Urine Color YELLOW Urine Appearance CLEAR Urine pH 6.0 Urine Specific [place] 1.005 Urine Protein 2+ Urine Glucose (UA) NEG Urine Ketones NEG Urine Occult Blood NEG Urine Nitrite NEG Urine Bilirubin NEG Urine Urobilinogen NEG Urine Leukocyte Esterase NEG Urine WBC (Auto) 1-5 /hpf Urine RBC (Auto) 0-4 /hpf Urine Hyaline Casts (Auto) 0 /lpf Urine Epithelial Cells (Auto) 5-10 /lpf Urine Bacteria (Auto) NEG Urine Random Creatinine 56.0 mg/dl Urine Random Microalbumin 1130.0 mg/L Urine Random Sodium 69 mEq/L Urine Random Potassium 12.6 mEq/L Urine Random Chloride 65 mEq/L Urine Opiates Screen POS Urine Methadone, Qualitative NEG Urine Barbiturates NEG Urine Phencyclidine (PCP) Level NEG Ur Amphetamine/Methamphetamine NEG MDMA (Ecstasy) Screen NEG Urine Benzodiazepines Screen NEG Urine Cocaine Metabolite NEG Urine Marijuana (THC) NEG IMAGING: CT scan of the cervical spine does not reveal acute pathology. Chronic changes appreciated. No evidence of fracture. Xrays of the left shoulder reveal the humeral head located in the glenoid fossa. No evidence of fracture or current dislocation. MRI of the left shoulder reveals a SLAP lesion. Assessment & Plan ASSESSMENT: S/P Left shoulder dislocation and reduction Left upper extremity numbness and weakness PLAN: Today's findings were discussed with the patient and he was educated regarding our clinical assessment. We would like to consult Neurology regarding his current neurologic findings regarding his left upper extremity s/p shoulder reduction but also his vague complaints of lower extremity weakness and prior history of stroke x 2. We will avoid NSAIDs due to his current history of kidney failure and also avoid narcotic pain medication if possible. An MRI of his cervical spine will be obtained from an orthopedic standpoint to look for a brachial plexopathy to determine whether he has a pretty her postganglionic injury. He will remain in his sling and ice the left shoulder accordingly. His MRI findings of his left shoulder were reviewed and although he does have some labral pathology his current uncontrolled hypertension and kidney disease take precedence over his complaints and findings of his left upper extremity. Orthopedically, we will continue to monitor and follow. Any further questions please notify [facility] at [phone]. Thank you for this consultation. I, Dr. Art, saw and examined the patient and discussed the management with my PA. I reviewed my PAs note and agree with the documented findings and the plan of care I developed.
[2016-11-24] MEDS ORDERED: SODIUM PHOSPHATE 3 MMOL/1 ML INFUSION IV STA (09:57)
[2016-11-24] MEDS ORDERED: LABETALOL HCL IV 5 MG/ML 20ML IV ONE ×2 (10:00)
[2016-11-24] MEDS ORDERED: SODIUM PHOSPHATE INJ 15 MMOL in SODIUM CHLORIDE 0.9% 250ML 250 ML IV ONE (10:30)
--- NOTE | 2016-11-24 12:47 | Neurology Consultation ---
Neurology Consultation Date of Consultation: Nov 24, 2016. Attending Physician: Daniel Andrew D.O. Primary Care Physician: No Doctor, Assigned Reason for Consultation: History of stroke, recent fall with left upper extremity weakness History of Present Illness Source: patient, hospital records The patient is a 26-year-old male who I am asked to evaluate for further evaluation of persistent numbness and weakness of the left upper extremity following a fall with outstretched arms complicated by dislocation of the left shoulder that was subsequently reduced by the patient's uncle. The patient has had an extensive imaging evaluation directed at trauma. No fractures of been identified. His left upper extremity is currently in a sling and he continues to complain of pain, numbness, and weakness of the left arm. He specifically complains of proximal left upper extremity pain, primarily in the shoulder region which radiates into the neck and down towards the elbow. This pain is worse with attempts at movement. He also complains of considerable numbness, affecting the entire forearm and hand, extending from the elbow to the fingertips. He also complains of significant weakness affecting the left hand. He reports he is unable to grasp and has only minimal movement of the thumb and fingers. 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 He has not been evaluated at [facility] previously and there are no available records pertaining to his past medical history. The patient also relays a history of stroke that occurred in 2013, possibly in the context of hypertensive urgency and renal failure. Again, specific records are not available. The patient does recall having significant weakness affecting the left face arm and leg at that time and recalls a lengthy stay at [facility] followed by a stay in a rehabilitation hospital. He reports that he made a near complete recovery other than some mild residual weakness of the left leg. The patient also reports that he had a second stroke in 2014 that occurred after his girl friend, at that time had committed suicide. He reports that he was under a significant degree of stress when he developed weakness affecting the right face arm and leg and was diagnosed with his second stroke at that time. He reports making a near complete recovery from this episode as well. The patient also reports a past medical history of compartment syndrome affecting the left forearm. He apparently required surgical treatment and has extensive surgical scars to the left forearm that would probably be consistent with this history. He indicates the compartment syndrome was diagnosed in 2011. He recalls having considerable pain, numbness, and weakness at that time affecting the left hand. He also reports that he did have some residual numbness affecting the left hand after his treatment for compartment syndrome. The numbness specifically affected the left fifth finger and extended along the medial aspect of the left palm towards the wrist. He does not think this particular sensory symptoms never resolved. The patient has also been complaining of some left-sided low back and hip pain ever since his fall. X-rays of these areas have been unremarkable. Past Medical/Surgical History Medical Problems: (1) [id number] kidney injury Status: Acute (2) Left arm numbness Status: Acute (3) Left arm weakness Status: Acute (4) Left shoulder pain Status: Acute Family History Coronary artery disease diabetes and cancer Social History Marital Status: single Occupation Status: unemployed Allergies Coded Allergies: Cefaclor (Verified Allergy, Unknown, ., 11/23/16) Codeine (Verified Allergy, Unknown, ., 11/23/16) Ketorolac Tromethamine (Verified Allergy, Unknown, ., 11/23/16) Penicillins (Verified Allergy, Unknown, ., 11/23/16) Tramadol (Verified Allergy, Unknown, ., 11/23/16) Current Inpatient Medications Current Inpatient Medications Medications (Trade) Dose Ordered Sig/Bulmaro Route Start Time Stop Time Status Last Admin Dose Admin Chlorzoxazone (Paraflex Tab) 500 mg Q4H PRN PO 11/23/16 17:15 12/23/16 17:14 11/23/16 23:00 500 MG Magnesium Oxide (Mag-Ox Tab) 400 mg DAILY PO 11/24/16 09:00 12/24/16 08:59 Future Hold 11/24/16 07:48 400 MG Verapamil HCl (Calan-Sr Tab) 240 mg DAILY PO 11/24/16 09:00 12/24/16 08:59 11/24/16 07:48 240 MG Potassium Chloride (Klor-Con Tab) 40 meq DAILY PO 11/24/16 09:00 12/24/16 08:59 Future Hold 11/24/16 07:48 40 MEQ Acetaminophen (Tylenol Tab) 650 mg Q4H PRN PO 11/23/16 17:15 12/23/16 17:14 11/23/16 23:13 650 MG Ondansetron HCl (Zofran Inj) 4 mg Q6H PRN IV 11/23/16 17:15 12/23/16 17:14 11/23/16 23:51 4 MG Morphine Sulfate (MoRPHine SULFATE INJ) 4 mg Q2H PRN IV 11/23/16 17:15 12/07/16 17:14 11/23/16 19:04 4 MG Polyethylene (Miralax Powder Packet) 17 gm DAILY PRN PO 11/23/16 17:15 12/23/16 17:14 Carvedilol (Coreg Tab) 3.125 mg BID PO 11/23/16 21:00 12/23/16 20:59 Future Hold 11/24/16 07:49 3.125 MG Nicotine (Nicoderm Cq 14MG Patch) 1 patch QAM TD 11/24/16 09:00 12/24/16 08:59 Miscellaneous (Remove Nicoderm Patch) 1 ea HS N/A 11/23/16 21:00 12/23/16 20:59 Hydromorphone HCl 2 mg 2 mg Q2H PRN IV 11/23/16 21:15 12/07/16 21:14 11/24/16 07:47 2 MG Promethazine HCl 12.5 mg/Sodium Chloride 50.5 ml @ 204 mls/hr Q6H PRN IV 11/24/16 00:00 12/24/16 00:00 Sodium Phosphate/ Sodium Chloride (Sodium Phosphate Inj/Nss 250ml) 255 ml @ 102 mls/hr TODAY@1030 ONCE IV 11/24/16 10:30 11/24/16 12:59 11/24/16 10:50 102 MLS/HR Review of Systems The patient denies fever, chills, vision change, hearing change, vertigo, tinnitus, chest pain, palpitations, shortness of breath, coughing, wheezing, abdominal pain, diarrhea, dysuria, incontinence, myalgias, rash, lymphadenopathy , easy bruising, depression or anxiety The patient complains of chronic left hip pain related to a childhood injury A full 10 point review of systems was obtained from this patient and is as described in history of present illness and otherwise listed above Physical Exam Vital Signs (Past 24 Hrs): Date Time Temp Pulse Resp B/P Pulse Ox O2 Delivery O2 Flow Rate FiO2 11/24/16 11:45 Room Air 11/24/16 11:15 86 16 163/123 99 Room Air 11/24/16 10:04 155/99 11/24/16 09:15 189/113 11/24/16 08:00 Room Air 11/24/16 07:40 36.9 112 16 191/125 98 Room Air 11/24/16 04:00 Room Air 11/24/16 03:30 36.5 110 19 178/108 94 Room Air 11/24/16 00:00 Room Air 11/23/16 23:47 36.7 109 22 187/99 96 Room Air 11/23/16 21:35 191/132 11/23/16 20:27 198/133 11/23/16 20:01 Room Air 11/23/16 18:47 36.8 108 16 180/125 Room Air 11/23/16 18:08 129/112 11/23/16 18:07 111 15 95 11/23/16 17:58 172/133 11/23/16 17:48 169/117 11/23/16 17:39 173/124 11/23/16 17:37 85 15 96 11/23/16 17:29 150/122 11/23/16 17:19 171/110 11/23/16 17:09 162/116 11/23/16 17:07 97 20 97 11/23/16 17:02 91 12 11/23/16 16:59 151/115 11/23/16 16:49 155/139 11/23/16 16:45 165/121 11/23/16 16:44 77 11/23/16 16:39 176/112 11/23/16 16:01 91 20 185/126 97 11/23/16 14:01 102 18 170/128 96 Room Air 11/23/16 13:26 181/159 11/23/16 13:14 37.2 115 18 218/138 97 Room Air The patient is a well-developed young male, he is well-nourished and appears moderately uncomfortable. His left upper extremity is held in a sling. He has extensive tattoos as well as extensive scarring over the left forearm related to his reported history of compartment syndrome. The patient is alert and oriented to person place and time. He exhibits normal attention and concentration as well as a normal fluent speech pattern. He is able to name objects and repeat phrases. He exhibits intact recent and remote memory as well as a normal age appropriate fund of knowledge and vocabulary. Visual belcher full to confrontation. Pupils equal round reactive to light and accommodation. Eye movements intact. There is no nystagmus or ptosis. Facial sensation intact. There is a mild lower right facial droop noted. Hearing intact to finger rub bilaterally. Palate elevates to midline. Tongue protrudes to midline. Shoulder shrug strength intact on the right, limited on the left due to pain. Sensation to light touch, temperature, and vibration significantly diminished for the left hand and forearm. There is hypersensitivity to touch for the proximal left arm from the elbow to the shoulder region. There is superimposed reduction to light touch and pain sensation along the medial aspect of the entire left upper extremity from the proximal arm down to the forearm. Sensation for the right arm and both legs is intact. There is no dysmetria with finger to nose on the right. Finger to nose cannot be assessed on the left. Heel to cruz on the right appears normal. There is mild dysmetria with heel to cruz on the left although these movements are limited by proximal pain at the hip. Ophthalmoscopic examination reveals normal-appearing optic nerves and posterior segments. No papilledema, no hemorrhages. There are no carotid bruits to auscultation, normal carotid pulses bilaterally. Musculoskeletal examination is limited for the left upper extremity due to significant proximal pain. The patient has minimal movement of finger flexors and finger extensors of the left hand. He has minimal movement of the thumb as well. Left wrist extensor and flexor strength is mild to moderately diminished although assessment seems to provoke pain and a true strength grading is difficult. The patient does not tolerate strength testing of the proximal left upper extremity due to pain. Strength for the right upper extremity is normal proximally and distally. Strength for both lower extremities appears normal although movement for the left lower extremity is mildly limited and perhaps tentative due to pain at the hip reported by the patient. Strength is otherwise 5/5 for both lower extremities and the right upper extremity. There is no foot drop. There is no atrophy of the arms or legs. Muscle tone is diffusely normal. No abnormal movements observed. Gait not tested due to safety concerns. Laboratory Results Past 24 Hours: 11/24/16 06:53 Red Blood Count 5.71, Mean Corpuscular Volume 81.6, Mean Corpuscular Hemoglobin 28.0, Mean Corpuscular Hemoglobin Concent 34.3, Mean Platelet Volume 10.6, Neutrophils (%) (Auto) 73.8, Lymphocytes (%) (Auto) 14.1, Monocytes (%) (Auto) 9.8, Eosinophils (%) (Auto) 1.8, Basophils (%) (Auto) 0.2, Neutrophils # (Auto) 8.43, Lymphocytes # (Auto) 1.61, Monocytes # (Auto) 1.12, Eosinophils # (Auto) 0.21, Basophils # (Auto) 0.02 11/24/16 06:53 Test 11/23/16 13:35 11/23/16 20:45 11/24/16 03:15 11/24/16 06:53 Phosphorus Level 1.6 mg/dl (2.5-4.9) Magnesium Level 2.1 mg/dl (1.8-2.4) Total Creatine Kinase 114 U/L (39-308) Thyroid Stimulating Hormone (TSH) 0.782 uIu/ml (0.300-4.500) Urine Color YELLOW Urine Appearance CLEAR (CLEAR) Urine pH 6.0 (4.5-7.5) Urine Specific [place] 1.005 (1.000-1.030) Urine Protein 2+ (NEG) Urine Glucose (UA) NEG (NEG) Urine Ketones NEG (NEG) Urine Occult Blood NEG (NEG) Urine Nitrite NEG (NEG) Urine Bilirubin NEG (NEG) Urine Urobilinogen NEG (NEG) Urine Leukocyte Esterase NEG (NEG) Urine WBC (Auto) 1-5 /hpf (0-5) Urine RBC (Auto) 0-4 /hpf (0-4) Urine Hyaline Casts (Auto) 0 /lpf (0-5) Urine Epithelial Cells (Auto) 5-10 /lpf (0-5) Urine Bacteria (Auto) NEG (NEG) Urine Random Creatinine 56.0 mg/dl Urine Random Microalbumin 1130.0 mg/L Urine Random Sodium 69 mEq/L Urine Random Potassium 12.6 mEq/L Urine Random Chloride 65 mEq/L Urine Opiates Screen POS (NEG) Urine Methadone, Qualitative NEG (NEG) Urine Barbiturates NEG (NEG) Urine Phencyclidine (PCP) Level NEG (NEG) Ur Amphetamine/Methamphetamine NEG (NEG) MDMA (Ecstasy) Screen NEG (NEG) Urine Benzodiazepines Screen NEG (NEG) Urine Cocaine Metabolite NEG (NEG) Urine Marijuana (THC) NEG (NEG) White Blood Count 11.42 K/uL (4.8-10.8) Red Blood Count 5.71 M/uL (4.7-6.1) Hemoglobin 16.0 g/dL (14.0-18.0) Hematocrit 46.6 % (42-52) Mean Corpuscular Volume 81.6 fL (80-100) Mean Corpuscular Hemoglobin 28.0 pg (25-34) Mean Corpuscular Hemoglobin Concent 34.3 g/dl (32-36) Platelet Count 163 K/uL (130-400) Mean Platelet Volume 10.6 fL (7.4-10.4) Neutrophils (%) (Auto) 73.8 % Lymphocytes (%) (Auto) 14.1 % Monocytes (%) (Auto) 9.8 % Eosinophils (%) (Auto) 1.8 % Basophils (%) (Auto) 0.2 % Neutrophils # (Auto) 8.43 K/uL (1.4-6.5) Lymphocytes # (Auto) 1.61 K/uL (1.2-3.4) Monocytes # (Auto) 1.12 K/uL (0.11-0.59) Eosinophils # (Auto) 0.21 K/uL (0-0.5) Basophils # (Auto) 0.02 K/uL (0-0.2) RDW Standard Deviation 41.9 fL (36.4-46.3) RDW Coefficient of Variation 14.2 % (11.5-14.5) Immature Granulocyte % (Auto) 0.3 % Immature Granulocyte # (Auto) 0.03 K/uL (0.00-0.02) Anion Gap 8.0 mmol/L (3-11) Est Creatinine Clear Calc Drug Dose 84.6 ml/min Estimated GFR () 41.3 Estimated GFR (Non- 35.6 BUN/Creatinine Ratio 5.4 (10-20) Calcium Level 8.7 mg/dl (8.5-10.1) Imaging CT of the cervical spine reveals some positional rotation of C1 and C2 and is considered negative for fracture or subluxation. An MRI of the left shoulder reveals a large labral tear. Impression This patient's persistent, distal, left upper extremity numbness and weakness is probably related to a stretch or traction type injury to the brachial plexus sustained in either the traumatic dislocation of the left shoulder or the reported reduction in the field by the patient's uncle. I am not really able to differentiate between these possibilities. Cervical nerve root injury is also possible and cannot be completely excluded at this time. Of note, this patient does have a history of compartment syndrome of the distal left upper extremity and reports that he had some residual sensory symptoms affecting the left hand. This patient also reports a history of 2 strokes, one of these occurred in 2013 , the second in 2014. This patient's reported history would suggested that the first stroke was located within the right cerebral hemisphere and I suspect was of the ischemic subcortical variety potentially related to hypertensive urgency. He does not recall being diagnosed with an intracerebral hemorrhage. The second stroke would have affected the left cerebral hemisphere based on his reported history. He does have mild weakness of the right lower facial musculature which may be related to this stroke in 2014. I do not find evidence of an obvious right hemiparesis. I am unable to determine if there is a residual hemiparesis affecting the left side from his stroke that reportedly occurred in 2013. His neurological examination is confounded by left upper extremity orthopedic trauma and suspected associated brachial plexus traction injury. Furthermore, evaluation of his left lower extremity is confounded by low back and hip pain. Plan This patient should probably have an MRI of the cervical spine completed as well as an MRI of the left brachial plexus. Based on the reported mechanism of injury, however, it is unlikely that an obvious neural injury will be identified. I would not pursue imaging of this patient's brain in the context of his current injuries, however. It would be probably be more useful to obtain records from his previous stroke evaluations at [facility]. An outpatient EMG of the left upper extremity will probably be needed. However, this testing should be delayed by 2 weeks as early testing would not have sufficient sensitivity. If his weakness and numbness is due to a stretch or traction injury to either the brachial plexus or cervical nerve roots, I expect a reasonably good prognosis for recovery of function. However, more significant or severe pathology may predict a worse prognosis for recovery. I do not have any specific treatment recommendations other than PT/OT as tolerated.
[2016-11-24] MEDS: ACETAMINOPHEN 325 MG TAB PO PRN (13:30)
[2016-11-24] MEDS ORDERED: LORAZEPAM 2 MG TAB PO PRN (13:45)
[2016-11-24] MEDS: LABETALOL HCL IV 5 MG/ML 20ML IV PRN ×2 (15:50→23:29)
--- NOTE | 2016-11-24 16:14 | Nephrology Consultation ---
Nephrology Consultation Date & Providers Date of Consultation: Nov 24, 2016. Primary Care Provider: No Doctor, Assigned Referring Provider: Reason for Consultation KAITLIN/CKD History of Present Illness Mr. Temo Alba is a 26-year-old male who presented to the emergency department at [facility] yesterday evening with left arm pain and weakness after he suffered a fall on an outstretched left hand resulting in left shoulder dislocation. The dislocation was reduced by the patient's uncle. Medical records were reviewed in detail today. I discussed plan of care with orthopedics, the hospitalist, as well as neurology morning. Outside records have been requested from Dr. Flowers. Mr. Alba has not had any recent follow-up with Nephrology however. He is scheduled to see Dr. Way in [place] in February. He denies significant NSAID use. Temo describes longstanding standing history of chronic kidney disease as well as several episodes of KAITLIN. He describes biopsy-proven membranous nephropathy. Renal biopsy obtained in [address] Flowers in [place]. Prior treatment has included Prograf without response. This was followed by 3 x infusions of Rituxan in 2009. He has since been maintained on CellCept. He believes that being told that he suffered primary/idiopathic membranous nephropathy. Accelerated hypertension followed his diagnosis of CKD. Temo describes a history of stroke in 2013 related to an episode of accelerated hypertension. He had another "mini stroke" associated with stress and accelerated blood pressure readings. He reports mild left lower extremity weakness but no other chronic neurologic deficits. He states that he had resistant hypertension but was eventually able to manage his blood pressure with solely verapamil. He has not been back to see Dr. Flowers due to a disagreement regarding his care. He recently scheduled an appointment with Dr. Way. Past Medical/Surgical History Medical: CKD IV (reported baseline creatinine approximately 5-6 months ago of 1.8 mg/dL) Hypertension Tobacco abuse History of CVA Upper extremity compartment syndrome Surgical: Kidney biopsy 2008 Allergies Coded Allergies: Cefaclor (Verified Allergy, Unknown, ., 11/23/16) Codeine (Verified Allergy, Unknown, ., 11/23/16) Ketorolac Tromethamine (Verified Allergy, Unknown, ., 11/23/16) Penicillins (Verified Allergy, Unknown, ., 11/23/16) Tramadol (Verified Allergy, Unknown, ., 11/23/16) Inpatient Medications Current Inpatient Medications Medications (Trade) Dose Ordered Sig/Bulmaro Route Start Time Stop Time Status Last Admin Dose Admin Chlorzoxazone (Paraflex Tab) 500 mg Q4H PRN PO 11/23/16 17:15 12/23/16 17:14 11/23/16 23:00 500 MG Magnesium Oxide (Mag-Ox Tab) 400 mg DAILY PO 11/24/16 09:00 12/24/16 08:59 Future Hold 11/24/16 07:48 400 MG Verapamil HCl (Calan-Sr Tab) 240 mg DAILY PO 11/24/16 09:00 12/24/16 08:59 11/24/16 07:48 240 MG Potassium Chloride (Klor-Con Tab) 40 meq DAILY PO 11/24/16 09:00 12/24/16 08:59 Future Hold 11/24/16 07:48 40 MEQ Acetaminophen (Tylenol Tab) 650 mg Q4H PRN PO 11/23/16 17:15 12/23/16 17:14 11/24/16 13:30 650 MG Ondansetron HCl (Zofran Inj) 4 mg Q6H PRN IV 11/23/16 17:15 12/23/16 17:14 11/23/16 23:51 4 MG Polyethylene (Miralax Powder Packet) 17 gm DAILY PRN PO 11/23/16 17:15 12/23/16 17:14 Carvedilol (Coreg Tab) 3.125 mg BID PO 11/23/16 21:00 12/23/16 20:59 Future Hold 11/24/16 07:49 3.125 MG Nicotine (Nicoderm Cq 14MG Patch) 1 patch QAM TD 11/24/16 09:00 12/24/16 08:59 Miscellaneous 1 ea 1 ea HS N/A 11/23/16 21:00 12/23/16 20:59 Promethazine HCl/ Sodium Chloride (Phenergan Inj/ Nss 50ml) 50.5 ml @ 204 mls/hr Q6H PRN IV 11/24/16 00:00 12/24/16 00:00 Labetalol HCl (Normodyne IV) 40 mg Q6 PRN IV 11/24/16 12:30 12/24/16 12:29 Lorazepam (Ativan Tab) 2 mg NOW PRN PO 11/24/16 13:45 12/24/16 13:44 Social History Smoking Status: Current Every Day Smoker Marital Status: single Occupation: unemployed Review of Systems A complete review of systems was performed. Pertinent positives are noted above. All other systems are negative. Physical Exam Date Time Temp Pulse Resp B/P Pulse Ox O2 Delivery O2 Flow Rate FiO2 11/24/16 15:43 36.7 88 18 169/108 97 Room Air 11/24/16 11:45 Room Air 11/24/16 11:15 86 16 163/123 99 Room Air 11/24/16 10:04 155/99 11/24/16 09:15 189/113 11/24/16 08:00 Room Air 11/24/16 07:40 36.9 112 16 191/125 98 Room Air 11/24/16 04:00 Room Air 11/24/16 03:30 36.5 110 19 178/108 94 Room Air 11/24/16 00:00 Room Air 11/23/16 23:47 36.7 109 22 187/99 96 Room Air 11/23/16 21:35 191/132 11/23/16 20:27 198/133 11/23/16 20:01 Room Air 11/23/16 18:47 36.8 108 16 180/125 Room Air 11/23/16 18:08 129/112 11/23/16 18:07 111 15 95 11/23/16 17:58 172/133 11/23/16 17:48 169/117 11/23/16 17:39 173/124 11/23/16 17:37 85 15 96 11/23/16 17:29 150/122 11/23/16 17:19 171/110 11/23/16 17:09 162/116 11/23/16 17:07 97 20 97 11/23/16 17:02 91 12 11/23/16 16:59 151/115 11/23/16 16:49 155/139 11/23/16 16:45 165/121 11/23/16 16:44 77 11/23/16 16:39 176/112 11/23/16 16:01 91 20 185/126 97 General Appearance: WD/WN, no apparent distress Head: normocephalic, atraumatic Eyes: normal inspection, sclerae normal ENT: normal ENT inspection, pharynx normal Neck: supple, no JVD Respiratory/Chest: lungs clear, no respiratory distress, no accessory muscle use Cardiovascular: regular rate, rhythm, no murmur Abdomen/GI: non tender, soft Extremities/Musculoskelatal: normal inspection, no pedal edema Neurologic/Psych: alert, oriented x 3 Laboratory Results Last 24 Hours Test 11/23/16 20:45 11/24/16 03:15 11/24/16 06:53 Urine Color YELLOW Urine Appearance CLEAR Urine pH 6.0 Urine Specific [place] 1.005 Urine Protein 2+ Urine Glucose (UA) NEG Urine Ketones NEG Urine Occult Blood NEG Urine Nitrite NEG Urine Bilirubin NEG Urine Urobilinogen NEG Urine Leukocyte Esterase NEG Urine WBC (Auto) 1-5 /hpf Urine RBC (Auto) 0-4 /hpf Urine Hyaline Casts (Auto) 0 /lpf Urine Epithelial Cells (Auto) 5-10 /lpf Urine Bacteria (Auto) NEG Urine Random Creatinine 56.0 mg/dl Urine Random Microalbumin 1130.0 mg/L Urine Random Sodium 69 mEq/L Urine Random Potassium 12.6 mEq/L Urine Random Chloride 65 mEq/L Urine Opiates Screen POS Urine Methadone, Qualitative NEG Urine Barbiturates NEG Urine Phencyclidine (PCP) Level NEG Ur Amphetamine/Methamphetamine NEG MDMA (Ecstasy) Screen NEG Urine Benzodiazepines Screen NEG Urine Cocaine Metabolite NEG Urine Marijuana (THC) NEG White Blood Count 11.42 K/uL Red Blood Count 5.71 M/uL Hemoglobin 16.0 g/dL Hematocrit 46.6 % Mean Corpuscular Volume 81.6 fL Mean Corpuscular Hemoglobin 28.0 pg Mean Corpuscular Hemoglobin Concent 34.3 g/dl Platelet Count 163 K/uL Mean Platelet Volume 10.6 fL Neutrophils (%) (Auto) 73.8 % Lymphocytes (%) (Auto) 14.1 % Monocytes (%) (Auto) 9.8 % Eosinophils (%) (Auto) 1.8 % Basophils (%) (Auto) 0.2 % Neutrophils # (Auto) 8.43 K/uL Lymphocytes # (Auto) 1.61 K/uL Monocytes # (Auto) 1.12 K/uL Eosinophils # (Auto) 0.21 K/uL Basophils # (Auto) 0.02 K/uL RDW Standard Deviation 41.9 fL RDW Coefficient of Variation 14.2 % Immature Granulocyte % (Auto) 0.3 % Immature Granulocyte # (Auto) 0.03 K/uL Sodium Level 141 mmol/L Potassium Level 3.7 mmol/L Chloride Level 108 mmol/L Carbon Dioxide Level 25 mmol/L Anion Gap 8.0 mmol/L Blood Urea Nitrogen 13 mg/dl Creatinine 2.40 mg/dl Est Creatinine Clear Calc Drug Dose 84.6 ml/min Estimated GFR () 41.3 Estimated GFR (Non- 35.6 BUN/Creatinine Ratio 5.4 Random Glucose 96 mg/dl Calcium Level 8.7 mg/dl Impression (1) [id number] kidney injury (2) Hypertensive emergency (3) Chronic renal disease, stage IV (4) Left arm weakness (5) Left shoulder pain (6) Left arm numbness Temo is a 26-year-old male with a reported history of membranous nephropathy in baseline chronic kidney disease IV (creatinine 1.8 mg/dL). Prior treatment had included Rituxan as well as tacrolimus. Most recently has been maintained on CellCept. Medical history also notable for accelerated hypertension and hypertensive emergency. He describes a history of stroke associated with his hypertension. He is a smoker. He presented with a fall on outstretched hand resulting in left shoulder dislocation which following reduction resulted in pain and weakness of left upper extremity. Laboratory studies concerning for acute on chronic kidney injury in the setting of accelerated hypertension. UA notable for 2+ protein, 1-5 WBC, no RBCs. Recommendations -- Continue verapamil 240 mg daily -- Obtain renal artery duplex -- PRN hydralazine switched to labetalol (40 mg IV q 6 hrs for SBP >160). Titrate labetalol as needed. -- BP goal approximately 150 mmHg -- Repeat metabolic profile tomorrow AM -- Outside records requested from Dr. Flowers -- No urgent indication for dialysis -- Document I/O's -- Furosemide 40 mg daily -- IV phosphorus ordered this AM for hypophosphatemia -- Medications appropriately dosed for renal function
[2016-11-24] MEDS ORDERED: TRAMADOL HCL 50 MG TAB PO PRN (17:00)
--- NOTE | 2016-11-24 17:00 | Progress Note ---
Subjective Date of Service: Nov 24, 2016. Subjective Pt evaluation today including: conversation w/ patient, physical exam, lab review, review of studies, conversation w/ education sales consultant, review of inpatient medication list Pain: left shoulder pain PO Intake: adequate Voiding: no voiding problems appreciate notes from specialists still with left shoulder pain Problem List Medical Problems: (1) Iqubi-vv-[id number] kidney injury Status: Acute (2) Left arm numbness Status: Acute (3) Left arm weakness Status: Acute (4) Left shoulder pain Status: Acute Review of Systems Musculoskeletal: + joint pain (left shoulder) All Other Systems: Reviewed and Negative Medications Current Inpatient Medications Medications (Trade) Dose Ordered Sig/Bulmaro Route Start Time Stop Time Status Last Admin Dose Admin Chlorzoxazone (Paraflex Tab) 500 mg Q4H PRN PO 11/23/16 17:15 12/23/16 17:14 11/23/16 23:00 500 MG Magnesium Oxide (Mag-Ox Tab) 400 mg DAILY PO 11/24/16 09:00 12/24/16 08:59 Future Hold 11/24/16 07:48 400 MG Verapamil HCl (Calan-Sr Tab) 240 mg DAILY PO 11/24/16 09:00 12/24/16 08:59 11/24/16 07:48 240 MG Potassium Chloride (Klor-Con Tab) 40 meq DAILY PO 11/24/16 09:00 12/24/16 08:59 Future Hold 11/24/16 07:48 40 MEQ Acetaminophen (Tylenol Tab) 650 mg Q4H PRN PO 11/23/16 17:15 12/23/16 17:14 11/24/16 13:30 650 MG Ondansetron HCl (Zofran Inj) 4 mg Q6H PRN IV 11/23/16 17:15 12/23/16 17:14 11/23/16 23:51 4 MG Polyethylene (Miralax Powder Packet) 17 gm DAILY PRN PO 11/23/16 17:15 12/23/16 17:14 Carvedilol (Coreg Tab) 3.125 mg BID PO 11/23/16 21:00 12/23/16 20:59 Future Hold 11/24/16 07:49 3.125 MG Nicotine (Nicoderm Cq 14MG Patch) 1 patch QAM TD 11/24/16 09:00 12/24/16 08:59 Miscellaneous 1 ea 1 ea HS N/A 11/23/16 21:00 12/23/16 20:59 Promethazine HCl/ Sodium Chloride (Phenergan Inj/ Nss 50ml) 50.5 ml @ 204 mls/hr Q6H PRN IV 11/24/16 00:00 12/24/16 00:00 Labetalol HCl (Normodyne IV) 40 mg Q6 PRN IV 11/24/16 12:30 12/24/16 12:29 11/24/16 15:50 40 MG Lorazepam (Ativan Tab) 2 mg NOW PRN PO 11/24/16 13:45 12/24/16 13:44 Tramadol HCl (Ultram Tab) 50 mg Q4H PRN PO 11/24/16 17:00 12/24/16 16:59 UNV Objective Vital Signs Date Time Temp Pulse Resp B/P Pulse Ox O2 Delivery O2 Flow Rate FiO2 11/24/16 16:37 182/93 11/24/16 16:00 Room Air 11/24/16 15:43 36.7 88 18 169/108 97 Room Air 11/24/16 11:45 Room Air 11/24/16 11:15 86 16 163/123 99 Room Air 11/24/16 10:04 155/99 11/24/16 09:15 189/113 11/24/16 08:00 Room Air 11/24/16 07:40 36.9 112 16 191/125 98 Room Air 11/24/16 04:00 Room Air 11/24/16 03:30 36.5 110 19 178/108 94 Room Air 11/24/16 00:00 Room Air 11/23/16 23:47 36.7 109 22 187/99 96 Room Air 11/23/16 21:35 191/132 11/23/16 20:27 198/133 11/23/16 20:01 Room Air 11/23/16 18:47 36.8 108 16 180/125 Room Air 11/23/16 18:08 129/112 11/23/16 18:07 111 15 95 11/23/16 17:58 172/133 11/23/16 17:48 169/117 11/23/16 17:39 173/124 11/23/16 17:37 85 15 96 11/23/16 17:29 150/122 11/23/16 17:19 171/110 11/23/16 17:09 162/116 11/23/16 17:07 97 20 97 11/23/16 17:02 91 12 11/23/16 16:59 151/115 Physical Exam General Appearance: WD/WN, no apparent distress Neck: supple, no adenopathy, no JVD, trachea midline Respiratory/Chest: chest non-tender, lungs clear, normal breath sounds, no respiratory distress, no accessory muscle use Cardiovascular: regular rate, rhythm, no edema, no gallop, no JVD, no murmur Abdomen: normal bowel sounds, non tender, soft, no organomegaly Extremities: no pedal edema, no calf tenderness, pelvis stable, + pertinent finding (left shoulder tenderness) Neurologic/Psychiatric: 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 systems analyst II-XII nml as tested, no motor/sensory deficits, alert, normal mood/affect, oriented x 3 Skin: normal color, warm/dry, no rash Lymphatic: no adenopathy Laboratory Results Last 24 Hours Test 11/23/16 20:45 11/24/16 03:15 11/24/16 06:53 Urine Color YELLOW Urine Appearance CLEAR Urine pH 6.0 Urine Specific [place] 1.005 Urine Protein 2+ Urine Glucose (UA) NEG Urine Ketones NEG Urine Occult Blood NEG Urine Nitrite NEG Urine Bilirubin NEG Urine Urobilinogen NEG Urine Leukocyte Esterase NEG Urine WBC (Auto) 1-5 /hpf Urine RBC (Auto) 0-4 /hpf Urine Hyaline Casts (Auto) 0 /lpf Urine Epithelial Cells (Auto) 5-10 /lpf Urine Bacteria (Auto) NEG Urine Random Creatinine 56.0 mg/dl Urine Random Microalbumin 1130.0 mg/L Urine Random Sodium 69 mEq/L Urine Random Potassium 12.6 mEq/L Urine Random Chloride 65 mEq/L Urine Opiates Screen POS Urine Methadone, Qualitative NEG Urine Barbiturates NEG Urine Phencyclidine (PCP) Level NEG Ur Amphetamine/Methamphetamine NEG MDMA (Ecstasy) Screen NEG Urine Benzodiazepines Screen NEG Urine Cocaine Metabolite NEG Urine Marijuana (THC) NEG White Blood Count 11.42 K/uL Red Blood Count 5.71 M/uL Hemoglobin 16.0 g/dL Hematocrit 46.6 % Mean Corpuscular Volume 81.6 fL Mean Corpuscular Hemoglobin 28.0 pg Mean Corpuscular Hemoglobin Concent 34.3 g/dl Platelet Count 163 K/uL Mean Platelet Volume 10.6 fL Neutrophils (%) (Auto) 73.8 % Lymphocytes (%) (Auto) 14.1 % Monocytes (%) (Auto) 9.8 % Eosinophils (%) (Auto) 1.8 % Basophils (%) (Auto) 0.2 % Neutrophils # (Auto) 8.43 K/uL Lymphocytes # (Auto) 1.61 K/uL Monocytes # (Auto) 1.12 K/uL Eosinophils # (Auto) 0.21 K/uL Basophils # (Auto) 0.02 K/uL RDW Standard Deviation 41.9 fL RDW Coefficient of Variation 14.2 % Immature Granulocyte % (Auto) 0.3 % Immature Granulocyte # (Auto) 0.03 K/uL Sodium Level 141 mmol/L Potassium Level 3.7 mmol/L Chloride Level 108 mmol/L Carbon Dioxide Level 25 mmol/L Anion Gap 8.0 mmol/L Blood Urea Nitrogen 13 mg/dl Creatinine 2.40 mg/dl Est Creatinine Clear Calc Drug Dose 84.6 ml/min Estimated GFR () 41.3 Estimated GFR (Non- 35.6 BUN/Creatinine Ratio 5.4 Random Glucose 96 mg/dl Calcium Level 8.7 mg/dl Assessment and Plan 26 yo male with h/o CKD stage IV due to idiopathic membranous nephropathy, follows with nephrology in [place], now with acute left shoulder pain due to dislocation, labrum injury. Also, has accelerated HTN and KAITLIN on CKD - Left shoulder injury, reported dislocation: labral injury on MRI, appreciate ortho consult, no plans for intervention recommend cervical MRI to look for pathology of numbness - Accelerated HTN: better controlled with Labetalol in addition to Verapamil follow on tele - KAITLIN on CKD IV: follow BMP, appreciate nephrology consult Lasix 40mg IV daily keep on tele due to need for Labetalol PRN follow up on MRI cervical spine and brachial plexus PT/OT evaluations
[2016-11-24] MEDS: OXYCODONE/ACETAMINOPHEN 5-325 TAB PO PRN (17:20)
[2016-11-24] MEDS: CHLORZOXAZONE 500 MG TAB PO PRN (20:07)
[2016-11-24] MEDS: ONDANSETRON INJ 2 MG/ML 2 ML VIAL IV PRN (20:12)
[2016-11-24] MEDS: PROMETHAZINE HCL INJ 12.5 MG in SODIUM CHLORIDE 0.9% 50ML 50 ML IV PRN (21:03)
[2016-11-25] VITALS (7 sets, daily range): BP systolic 143–228; BP diastolic 78–130; PULSE 70–93; TEMP 36.4–37.1; O2SAT 95–96
[2016-11-25] MEDS: OXYCODONE/ACETAMINOPHEN 5-325 TAB PO PRN ×4 (04:51→23:18)
[2016-11-25 08:00] LABS: BUN/CREATININE RATIO 5.4 (10-20); CALCIUM 8.5 mg/dl (8.5-10.1); CREATININE 2.5 mg/dl (0.60-1.40); POTASSIUM 3.9 mmol/L (3.5-5.1)
[2016-11-25] MEDS ORDERED: LORAZEPAM 2 MG/ML 1 ML VIAL ONE (08:06)
[2016-11-25 08:08] LABS: PHOSPHORUS 2.6 mg/dl (2.5-4.9)
--- NOTE | 2016-11-25 08:29 | Progress Note ---
Orthopedic SOAP Note Subjective Date of Service: Nov 25, 2016. Post OP Day: HD #2 Reports: complaints (Left shoulder pain) Problem List Medical Problems: (1) [id number] kidney injury Status: Acute (2) Left arm numbness Status: Acute (3) Left arm weakness Status: Acute (4) Left shoulder pain Status: Acute Objective A&O x3 LUE: Sensation to light touch diminished throughout the hand,, slightly decreased at the shoulder. 2+ radial pulse. Motor to his median, radial, ulnar, AIN, PIN 3+/5, musculocutaneous nerve 4-/5. He has discomfort with gentle range of motion of the shoulder. His previous incisions about the forearm and dorsal hand are well-healed. Date Time Temp Pulse Resp B/P Pulse Ox O2 Delivery O2 Flow Rate FiO2 11/25/16 07:24 37.1 90 20 150/86 95 Room Air 11/25/16 04:30 36.7 81 18 153/78 Room Air 11/25/16 04:15 Room Air 11/25/16 00:01 Room Air 11/24/16 23:15 36.5 90 20 186/126 97 Room Air 11/24/16 20:10 Room Air 11/24/16 20:02 37.1 96 18 204/154 99 11/24/16 16:37 182/93 11/24/16 16:00 Room Air 11/24/16 15:43 36.7 88 18 169/108 97 Room Air 11/24/16 11:45 Room Air 11/24/16 11:15 86 16 163/123 99 Room Air 11/24/16 10:04 155/99 11/24/16 09:15 189/113 Laboratory Results 24 Hours: Last 24 Hours Test 11/25/16 07:12 Sodium Level 144 mmol/L Potassium Level 3.9 mmol/L Chloride Level 112 mmol/L Carbon Dioxide Level 22 mmol/L Anion Gap 10.0 mmol/L Blood Urea Nitrogen 14 mg/dl Creatinine 2.50 mg/dl Est Creatinine Clear Calc Drug Dose 52.3 ml/min Estimated GFR () 39.3 Estimated GFR (Non- 33.9 BUN/Creatinine Ratio 5.4 Random Glucose 105 mg/dl Calcium Level 8.5 mg/dl Phosphorus Level 2.6 mg/dl Albumin 3.2 gm/dl Additional Notes: MRI:Left shoulder, shows intact rotator cuff, SLAP tear. MRI: Cervical spine, normal study. MRI: Chest, normal study. Assessment Left Shoulder dislocation with upper extremity pain and numbness. Plan Continue with sling. Can start outpatient physical therapy for the shoulder and upper extremity. We will obtain EMG/nerve conduction study of the left upper extremity 3-4 weeks after discharge. Continue with ice. Due to patient's previous excessive narcotics use, did have a discussion with him about possibly being treated at a pain management clinic, and he seemed to be willing to participate. Will follow-up as an outpatient in 2 weeks. Continue care per primary service. Please recall orthopedics if there are any orthopedic issues and to schedule his outpatient follow-up appointment [phone]. I, Dr. Art, saw and examined the patient and discussed the management with my PA. I reviewed my PAs note and agree with the documented findings and the plan of care I developed.
[2016-11-25] MEDS ORDERED: LABETALOL HCL 200 MG TAB PO SCH (09:00)
[2016-11-25] MEDS ORDERED: NURSING VERBAL MED ORDER ONE ×2 (09:00→15:45)
[2016-11-25] MEDS: NICOTINE 14 MG/24 HR TDSY TD SCH (09:00)
--- NOTE | 2016-11-25 09:55 | DIAGNOSTIC IMAGING REPORT ---
MRI CERVICAL WITHOUT CONTRAST CLINICAL HISTORY: Trauma, left upper extremity weakness, sensory loss. TECHNIQUE: Sagittal and axial T1, T2 and STIR images were obtained. COMPARISON STUDY: CT scan dated 11/23/2016 There are no suspicious areas of marrow replacement. No intrinsic cervical cord lesions are visualized. C2-3: There is no evidence of disc bulge or focal herniation. There is no spinal or foraminal stenosis. C3-4: There is no evidence of disc bulge or focal herniation. There is no spinal or foraminal stenosis. C4-5: There are no disc bulges or focal herniations. There is no spinal or foraminal stenosis. C5-6 :There are no disc bulges or focal herniations. There is no spinal or foraminal stenosis. C6-7: There is no evidence of disc bulge or focal herniation. There is no evidence of spinal or foraminal stenosis. C7-T1: There is no evidence of disc bulge or focal herniation. There is no evidence of spinal or foraminal stenosis. IMPRESSION:Normal study Electronically signed by: Marquise Tubbs M.D. 11/25/2016 9:54 AM Dictated Date/Time: 11/25/2016 9:51 AM
--- NOTE | 2016-11-25 10:02 | DIAGNOSTIC IMAGING REPORT ---
MRI brachial plexus CHEST WITHOUT CONTRAST CLINICAL HISTORY: brachial plexus traction injury trauma. Pain. TECHNIQUE: Multi axial MRI acquisition COMPARISON STUDY: None FINDINGS: Signal characteristics of the brachial plexus are unremarkable. There is no evidence for mass or collection. Signal characteristics the major muscle bundles are unremarkable. Structures of the exam are unremarkable and symmetric. Visualized components of the cervical spine are unremarkable. IMPRESSION: Normal study Electronically signed by: Silver Ivory M.D. 11/25/2016 10:01 AM Dictated Date/Time: 11/25/2016 9:51 AM
--- NOTE | 2016-11-25 10:20 | DIAGNOSTIC IMAGING REPORT ---
Duplex renal arterial Doppler DUPLEX RENAL ARTERY CLINICAL HISTORY: MATI, accelerated HTN hypertension TECHNIQUE: Doppler COMPARISON STUDY: None FINDINGS: Normal renal arterial velocity characteristics. Normal resistive indices. IMPRESSION: Normal study. Electronically signed by: Silver Ivory M.D. 11/25/2016 10:19 AM Dictated Date/Time: 11/25/2016 10:18 AM
[2016-11-25] MEDS: VERAPAMIL HCL 240 MG TABCR PO SCH (10:28)
--- NOTE | 2016-11-25 11:24 | Nephrology Progress Note ---
Nephrology Progress Note Date of Service Nov 25, 2016. Chief Complaint KAITLIN/CKD Subjective No acute events overnight. Reports nausea and vomiting. Temo thinks this was related to the withdraw of his pain medications. He states that his shoulder pain is tolerable this morning and does seem to be improving. He is voiding urine without difficulty. Blood pressure has improved. Activity tolerance good. Review of Systems A complete review of systems was performed. Pertinent positives are noted above. All other systems are negative. Vital Signs Last 8 Hrs Date Time Temp Pulse Resp B/P Pulse Ox O2 Delivery O2 Flow Rate FiO2 11/25/16 08:00 Room Air 11/25/16 07:24 37.1 90 20 150/86 95 Room Air 11/25/16 04:30 36.7 81 18 153/78 Room Air 11/25/16 04:15 Room Air I & O 24-Hour Column 11/25/16 08:00 Intake Total 1180 ml Output Total 1550 ml Balance -370 ml Last Recorded Weight Weight (Kilograms): 98.600 Physical Exam General Appearance: WD/WN, no apparent distress Head: normocephalic, atraumatic Eyes: normal inspection, sclerae normal ENT: normal ENT inspection, pharynx normal Neck: supple, no JVD Respiratory/Chest: lungs clear, no respiratory distress, no accessory muscle use Cardiovascular: regular rate, rhythm, no murmur Abdomen/GI: non tender, soft Extremities/Musculoskelatal: normal inspection, + pertinent finding (LUE in sling) Neurologic/Psych: alert, oriented x 3 Social History Marital Status: single Occupation: unemployed Laboratory Results Past 24 Hours 11/25/16 07:12 Test 11/25/16 07:12 Anion Gap 10.0 mmol/L (3-11) Est Creatinine Clear Calc Drug Dose 52.3 ml/min Estimated GFR () 39.3 Estimated GFR (Non- 33.9 BUN/Creatinine Ratio 5.4 (10-20) Calcium Level 8.5 mg/dl (8.5-10.1) Phosphorus Level 2.6 mg/dl (2.5-4.9) Albumin 3.2 gm/dl (3.4-5.0) Allergies Coded Allergies: Cefaclor (Verified Allergy, Unknown, ., 11/23/16) Codeine (Verified Allergy, Unknown, ., 11/23/16) Ketorolac Tromethamine (Verified Allergy, Unknown, ., 11/23/16) Penicillins (Verified Allergy, Unknown, ., 11/23/16) Tramadol (Verified Allergy, Unknown, ., 11/23/16) Medications Current Inpatient Medications Medications (Trade) Dose Ordered Sig/Bulmaro Route Start Time Stop Time Status Last Admin Dose Admin Chlorzoxazone (Paraflex Tab) 500 mg Q4H PRN PO 11/23/16 17:15 12/23/16 17:14 11/24/16 20:07 500 MG Magnesium Oxide (Mag-Ox Tab) 400 mg DAILY PO 11/24/16 09:00 12/24/16 08:59 Future Hold 11/24/16 07:48 400 MG Verapamil HCl (Calan-Sr Tab) 240 mg DAILY PO 11/24/16 09:00 12/24/16 08:59 11/25/16 10:28 240 MG Potassium Chloride (Klor-Con Tab) 40 meq DAILY PO 11/24/16 09:00 12/24/16 08:59 Future Hold 11/24/16 07:48 40 MEQ Acetaminophen (Tylenol Tab) 650 mg Q4H PRN PO 11/23/16 17:15 12/23/16 17:14 11/24/16 13:30 650 MG Ondansetron HCl (Zofran Inj) 4 mg Q6H PRN IV 11/23/16 17:15 12/23/16 17:14 11/24/16 20:12 4 MG Polyethylene (Miralax Powder Packet) 17 gm DAILY PRN PO 11/23/16 17:15 12/23/16 17:14 Carvedilol (Coreg Tab) 3.125 mg BID PO 11/23/16 21:00 12/23/16 20:59 Future Hold 11/24/16 07:49 3.125 MG Nicotine (Nicoderm Cq 14MG Patch) 1 patch QAM TD 11/24/16 09:00 12/24/16 08:59 Miscellaneous 1 ea 1 ea HS N/A 11/23/16 21:00 12/23/16 20:59 Promethazine HCl/ Sodium Chloride (Phenergan Inj/ Nss 50ml) 50.5 ml @ 204 mls/hr Q6H PRN IV 11/24/16 00:00 12/24/16 00:00 2/8/17 21:03 204 MLS/HR Labetalol HCl (Normodyne IV) 40 mg Q6 PRN IV 11/24/16 12:30 12/24/16 12:29 11/24/16 23:29 40 MG Lorazepam (Ativan Tab) 2 mg NOW PRN PO 11/24/16 13:45 12/24/16 13:44 11/24/16 21:33 2 MG Oxycodone/ Acetaminophen (Percocet 5-325mg Tab) 1 tab Q8H PRN PO 11/24/16 17:15 12/08/16 17:14 11/25/16 08:09 1 TAB Labetalol HCl (Normodyne Tab) 200 mg BID PO 11/25/16 09:00 12/25/16 08:59 11/25/16 10:27 200 MG Impression (1) [id number] kidney injury (2) Hypertensive emergency (3) Chronic renal disease, stage IV (4) Left arm weakness (5) Left shoulder pain (6) Left arm numbness Temo is a 26-year-old male with primary membranous nephropathy and baseline chronic kidney disease (creatinine 1.8 mg/dL). Prior treatment had included Rituxan as well as tacrolimus. Most recently has been maintained on CellCept. Medical history also notable for notable hypertension. He was not able to tolerate RAAS blockade in the past due to worsening renal function by his report. He describes a history of stroke associated with accelerated hypertension. He is a smoker. He presented with a fall on outstretched hand resulting in left shoulder dislocation which following reduction resulted in pain and weakness of left upper extremity. Renal function stable. Blood pressure and volume status currently appropriate. Started on PO labetalol 200 mg BID this AM. UA notable for 2+ protein, 1-5 WBC, no RBCs. No LISA on duplex. Outpatient follow up scheduled with Dr. Way for December 17. Appropriate to restart CellCept 1000 mg BID at discharge. Recommendations -- Continue verapamil 240 mg daily -- Labetalol 200 mg BID -- Outside records requested from Dr. Flowers -- Furosemide 40 mg daily -- Medications appropriately dosed for renal function
[2016-11-25] MEDS ORDERED: LBT200 PO ×2 (13:39→15:35)
[2016-11-25] MEDS: LABETALOL HCL IV 5 MG/ML 20ML IV PRN ×2 (14:02→15:51)
[2016-11-25] MEDS ORDERED: MYCO500T4 PO (15:35)
--- NOTE | 2016-11-25 16:27 | Progress Note ---
Subjective Date of Service: Nov 25, 2016. Subjective Pt evaluation today including: conversation w/ patient, physical exam, lab review, review of studies, conversation w/ merchandising consultant, review of inpatient medication list Pain: left shoulder pain PO Intake: adequate Voiding: no voiding problems reviewed imaging results with patient discussed better BP control, still quite high in the afternoon appreciate nephrology input plan for d/c tomorrow Problem List Medical Problems: (1) [id number] kidney injury Status: Acute (2) Left arm numbness Status: Acute (3) Left arm weakness Status: Acute (4) Left shoulder pain Status: Acute Review of Systems Musculoskeletal: + joint pain (left shoulder) Neurologic: + numbness/tingling (left lower arm numb) All Other Systems: Reviewed and Negative Medications Current Inpatient Medications Medications (Trade) Dose Ordered Sig/Bulmaro Route Start Time Stop Time Status Last Admin Dose Admin Chlorzoxazone (Paraflex Tab) 500 mg Q4H PRN PO 11/23/16 17:15 12/23/16 17:14 11/24/16 20:07 500 MG Magnesium Oxide (Mag-Ox Tab) 400 mg DAILY PO 11/24/16 09:00 12/24/16 08:59 Future Hold 11/24/16 07:48 400 MG Verapamil HCl (Calan-Sr Tab) 240 mg DAILY PO 11/24/16 09:00 12/24/16 08:59 11/25/16 10:28 240 MG Potassium Chloride (Klor-Con Tab) 40 meq DAILY PO 11/24/16 09:00 12/24/16 08:59 Future Hold 11/24/16 07:48 40 MEQ Acetaminophen (Tylenol Tab) 650 mg Q4H PRN PO 11/23/16 17:15 12/23/16 17:14 11/24/16 13:30 650 MG Ondansetron HCl (Zofran Inj) 4 mg Q6H PRN IV 11/23/16 17:15 12/23/16 17:14 11/24/16 20:12 4 MG Polyethylene (Miralax Powder Packet) 17 gm DAILY PRN PO 11/23/16 17:15 12/23/16 17:14 Carvedilol (Coreg Tab) 3.125 mg BID PO 11/23/16 21:00 12/23/16 20:59 Future Hold 11/24/16 07:49 3.125 MG Nicotine (Nicoderm Cq 14MG Patch) 1 patch QAM TD 11/24/16 09:00 12/24/16 08:59 Miscellaneous 1 ea 1 ea HS N/A 11/23/16 21:00 12/23/16 20:59 Promethazine HCl/ Sodium Chloride (Phenergan Inj/ Nss 50ml) 50.5 ml @ 204 mls/hr Q6H PRN IV 11/24/16 00:00 12/24/16 00:00 11/24/16 21:03 204 MLS/HR Labetalol HCl (Normodyne IV) 40 mg Q6 PRN IV 11/24/16 12:30 12/24/16 12:29 11/25/16 15:51 40 MG Lorazepam (Ativan Tab) 2 mg NOW PRN PO 11/24/16 13:45 12/24/16 13:44 11/24/16 21:33 2 MG Oxycodone/ Acetaminophen (Percocet 5-325mg Tab) 1 tab Q8H PRN PO 11/24/16 17:15 12/08/16 17:14 11/25/16 15:23 1 TAB Labetalol HCl (Normodyne Tab) 400 mg BID PO 11/25/16 21:00 12/25/16 20:59 Objective Vital Signs Date Time Temp Pulse Resp B/P Pulse Ox O2 Delivery O2 Flow Rate FiO2 11/25/16 15:53 Room Air 11/25/16 15:43 36.4 83 16 211/117 96 Room Air 11/25/16 14:00 188/113 11/25/16 12:00 Room Air 11/25/16 08:00 Room Air 11/25/16 07:24 37.1 90 20 150/86 95 Room Air 11/25/16 04:30 36.7 81 18 153/78 Room Air 11/25/16 04:15 Room Air 11/25/16 00:01 Room Air 11/24/16 23:15 36.5 90 20 186/126 97 Room Air 11/24/16 20:10 Room Air 11/24/16 20:02 37.1 96 18 204/154 99 11/24/16 16:37 182/93 Physical Exam General Appearance: WD/WN, no apparent distress Eyes: normal inspection, EOMI, sclerae normal ENT: normal ENT inspection, hearing grossly normal, pharynx normal Neck: supple, no adenopathy, no JVD, trachea midline Respiratory/Chest: chest non-tender, lungs clear, normal breath sounds, no respiratory distress, no accessory muscle use Cardiovascular: regular rate, rhythm, no edema, no gallop, no JVD, no murmur Abdomen: normal bowel sounds, non tender, soft, no organomegaly Extremities: normal inspection, no pedal edema, no calf tenderness, normal capillary refill, pelvis stable, + pertinent finding (left arm in sling, shoulder tender to palpation) Neurologic/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, alert, normal mood/affect, oriented x 3, + sensory deficit (left lower arm, global from elbow distally) Skin: normal color, warm/dry, no rash Laboratory Results Last 24 Hours Test 11/25/16 07:12 Sodium Level 144 mmol/L Potassium Level 3.9 mmol/L Chloride Level 112 mmol/L Carbon Dioxide Level 22 mmol/L Anion Gap 10.0 mmol/L Blood Urea Nitrogen 14 mg/dl Creatinine 2.50 mg/dl Est Creatinine Clear Calc Drug Dose 52.3 ml/min Estimated GFR () 39.3 Estimated GFR (Non- 33.9 BUN/Creatinine Ratio 5.4 Random Glucose 105 mg/dl Calcium Level 8.5 mg/dl Phosphorus Level 2.6 mg/dl Albumin 3.2 gm/dl Assessment and Plan 26 yo male with h/o CKD stage IV due to idiopathic membranous nephropathy, follows with nephrology in [place], now with acute left shoulder pain due to dislocation, labrum injury. Also, has accelerated HTN and KAITLIN on CKD - Left shoulder injury, reported dislocation: labral injury on MRI, appreciate ortho consult, no plans for intervention cervical MRI, brachial plexus MRI, left shoulder MRI without definitive injury pain and numbness likely explained by traction injury, will be self limiting oxycodone q8, no plans for IV narcotics keep arm in sling, ice - Accelerated HTN: continue Verapamil, increase Labetalol to 400mg BID use labetalol IV PRN - KAITLIN on CKD IV: follow BMP, appreciate nephrology consult Lasix 40mg PO daily Cr still 2.5, likely baseline - Narcotic abuse: according to database he has filled numerous prescriptions at different locations 1400 pills prescribed in the past 12 months alone will NOT get narcotic prescription on discharge keep on tele due to need for Labetalol PRN PT/OT evaluations d/c tomorrow
[2016-11-25] MEDS: LABETALOL HCL 200 MG TAB PO SCH (20:27)
[2016-11-25] MEDS: CHLORZOXAZONE 500 MG TAB PO PRN (20:28)
[2016-11-26] VITALS (11 sets, daily range): BP systolic 88–209; BP diastolic 60–120; PULSE 56–96; TEMP 36.7–37.1; O2SAT 94–97
[2016-11-26] MEDS: OXYCODONE/ACETAMINOPHEN 5-325 TAB PO PRN (08:03)
[2016-11-26] MEDS: NICOTINE 14 MG/24 HR TDSY TD SCH (08:04)
[2016-11-26] MEDS: LABETALOL HCL 200 MG TAB PO SCH ×3 (08:04→20:37)
[2016-11-26] MEDS: CHLORZOXAZONE 500 MG TAB PO PRN (08:04)
[2016-11-26] MEDS: VERAPAMIL HCL 240 MG TABCR PO SCH (08:04)
[2016-11-26 08:19] LABS: BUN/CREATININE RATIO 5.8 (10-20); CALCIUM 8.9 mg/dl (8.5-10.1); CREATININE 2.6 mg/dl (0.60-1.40); POTASSIUM 3.8 mmol/L (3.5-5.1)
[2016-11-26 08:21] LABS: PHOSPHORUS 2.7 mg/dl (2.5-4.9)
[2016-11-26] MEDS ORDERED: LORAZEPAM 1 MG TAB PO STA (09:14)
[2016-11-26] MEDS: TAPENTADOL ER 50 MG TABCR PO ONE ×2 (09:48→13:24)
[2016-11-26] MEDS: ONDANSETRON INJ 2 MG/ML 2 ML VIAL IV PRN ×2 (10:08→17:34)
[2016-11-26 10:11] LABS: COD UR NEGATIVE NG/ML (CUTOFF=50); HYDROCOD UR NEGATIVE NG/ML (CUTOFF=50); HYDROMOR UR 1580 NG/ML (CUTOFF=50); MORPHINE UR 814 NG/ML (CUTOFF=50); NORHYDROCODONE CONF UR 95 NG/ML (CUTOFF=50); OXYMORPH UR 483 NG/ML (CUTOFF=50)
--- NOTE | 2016-11-26 10:38 | Nephrology Progress Note ---
Nephrology Progress Note Date of Service Nov 26, 2016. Chief Complaint KAITLIN/CKD Subjective Temo reports persistent pain and mild nausea. He is uncomfortable this morning from sleeping is a bad position overnight. Appetite is poor. Mild headache this AM. Ambulating without difficulty. No urinary complaints. Blood pressure elevated. Records from Dr. Flowers show that Temo has not seen a burner machine operator in the outpatient setting since 2013. Temo confirmed this. Review of Systems A complete review of systems was performed. Pertinent positives are noted above. All other systems are negative. Vital Signs Last 8 Hrs Date Time Temp Pulse Resp B/P Pulse Ox O2 Delivery O2 Flow Rate FiO2 11/26/16 09:10 182/116 11/26/16 08:00 Room Air 11/26/16 07:40 37.1 69 20 192/116 97 Room Air 11/26/16 04:05 Room Air 11/26/16 04:00 56 11/26/16 02:57 36.9 94 18 156/105 94 Room Air I & O 24-Hour Column 11/26/16 08:00 Intake Total 1360 ml Balance 1360 ml Last Recorded Weight Weight (Kilograms): 94.600 Physical Exam General Appearance: WD/WN, no apparent distress Head: normocephalic, atraumatic Eyes: normal inspection, sclerae normal ENT: normal ENT inspection, pharynx normal Neck: supple, no JVD Respiratory/Chest: lungs clear, no respiratory distress, no accessory muscle use Cardiovascular: regular rate, rhythm, no gallop, no murmur Abdomen/GI: non tender, soft Extremities/Musculoskelatal: normal inspection, no pedal edema, + pertinent finding (Left shoulder in sling) Neurologic/Psych: alert, oriented x 3 Social History Marital Status: single Occupation: unemployed Laboratory Results Past 24 Hours 11/26/16 07:30 Test 11/26/16 07:30 11/26/16 09:15 11/26/16 10:20 Anion Gap 7.0 mmol/L (3-11) Est Creatinine Clear Calc Drug Dose 49.3 ml/min Estimated GFR () 37.5 Estimated GFR (Non- 32.3 BUN/Creatinine Ratio 5.8 (10-20) Calcium Level 8.9 mg/dl (8.5-10.1) Phosphorus Level 2.7 mg/dl (2.5-4.9) Albumin 3.5 gm/dl (3.4-5.0) Bedside Glucose 125 mg/dl (70-99) Allergies Coded Allergies: Cefaclor (Verified Allergy, Unknown, ., 11/23/16) Codeine (Verified Allergy, Unknown, ., 11/23/16) Ketorolac Tromethamine (Verified Allergy, Unknown, ., 11/23/16) Penicillins (Verified Allergy, Unknown, ., 11/23/16) Tramadol (Verified Allergy, Unknown, ., 11/23/16) Medications Current Inpatient Medications Medications (Trade) Dose Ordered Sig/Bulmaro Route Start Time Stop Time Status Last Admin Dose Admin Chlorzoxazone (Paraflex Tab) 500 mg Q4H PRN PO 11/23/16 17:15 12/23/16 17:14 11/26/16 08:04 500 MG Magnesium Oxide (Mag-Ox Tab) 400 mg DAILY PO 11/24/16 09:00 12/24/16 08:59 Future Hold 11/24/16 07:48 400 MG Verapamil HCl (Calan-Sr Tab) 240 mg DAILY PO 11/24/16 09:00 12/24/16 08:59 11/26/16 08:04 240 MG Potassium Chloride (Klor-Con Tab) 40 meq DAILY PO 11/24/16 09:00 12/24/16 08:59 Future Hold 11/24/16 07:48 40 MEQ Acetaminophen (Tylenol Tab) 650 mg Q4H PRN PO 11/23/16 17:15 12/23/16 17:14 11/24/16 13:30 650 MG Ondansetron HCl (Zofran Inj) 4 mg Q6H PRN IV 11/23/16 17:15 12/23/16 17:14 11/26/16 10:08 4 MG Polyethylene (Miralax Powder Packet) 17 gm DAILY PRN PO 11/23/16 17:15 12/23/16 17:14 Nicotine (Nicoderm Cq 14MG Patch) 1 patch QAM TD 11/24/16 09:00 12/24/16 08:59 Miscellaneous 1 ea 1 ea HS N/A 11/23/16 21:00 12/23/16 20:59 Promethazine HCl/ Sodium Chloride (Phenergan Inj/ Nss 50ml) 50.5 ml @ 204 mls/hr Q6H PRN IV 11/24/16 00:00 12/24/16 00:00 11/24/16 21:03 204 MLS/HR Labetalol HCl (Normodyne IV) 40 mg Q6 PRN IV 11/24/16 12:30 12/24/16 12:29 11/25/16 15:51 40 MG Labetalol HCl (Normodyne Tab) 400 mg BID PO 11/25/16 21:00 12/25/16 20:59 11/26/16 08:04 400 MG Tapentadol (Nucynta Tab) 50 mg Q4H PRN PO 11/26/16 10:00 12/10/16 09:59 Tapentadol (Nucynta Er Tab) 50 mg Q12 PO 11/26/16 21:00 12/26/16 20:59 Impression (1) [id number] kidney injury (2) Hypertensive emergency (3) Chronic renal disease, stage IV (4) Left arm weakness (5) Left shoulder pain (6) Left arm numbness Temo is a 26-year-old male with primary membranous nephropathy and CKD. Prior treatment had included Rituxan as well as tacrolimus. Most recently has been maintained on CellCept. Medical history also notable for notable hypertension. He was not able to tolerate RAAS blockade in the past due to worsening renal function by his report. He describes a history of stroke associated with accelerated hypertension. He is a smoker. He presented with a fall on outstretched hand resulting in left shoulder dislocation which following reduction resulted in pain and weakness of left upper extremity. Renal function stable. Blood pressure and volume status currently appropriate. Started on PO labetalol 200 mg BID this AM. UA notable for 2+ protein, 1-5 WBC, no RBCs. No LISA on duplex. Outpatient follow up scheduled with Dr. Way for December 17. Appropriate to restart CellCept 1000 mg BID at discharge. Recommendations -- Continue verapamil 240 mg daily -- Labetalol 300 mg TID -- Furosemide 40 mg daily -- Suspect that he would benefit from VARUN/ARB but Temo is reticent to consider one of these medications due to prior experience -- Repeat urine studies and profile ordered for tomorrow AM -- Outside records requested from Dr. Flowers reviewed -- Medications appropriately dosed for renal function
[2016-11-26] MEDS ORDERED: FUROSEMIDE 40 MG TAB PO ONE (11:30)
[2016-11-26 11:35] LABS: URINE APPEARANCE CLEAR (CLEAR); URINE BILIRUBIN NEG (NEG); URINE COLOR YELLOW; URINE EPITHELIAL CELL AUTO 0-5 /lpf (0-5); URINE NITRITE NEG (NEG); URINE PH 6.5 (4.5-7.5); URINE SPECIFIC GRAVITY 1.009 (1.000-1.030); UROBILINOGEN NEG (NEG)
[2016-11-26 11:39] LABS: MANUAL MICROSCOPIC REQUIRED? NO; REVIEW REQ? NO
[2016-11-26] MEDS: TAPENTADOL HCL 50 MG TAB PO PRN ×2 (11:51→16:43)
[2016-11-26] MEDS ORDERED: PERFLUTREN LIPID MICROSPHERE (DEFINITY) IV ONE (12:51)
[2016-11-26] MEDS ORDERED: TAPENTADOL ER 50 MG TABCR ONE (13:20)
[2016-11-26] MEDS: PROMETHAZINE HCL INJ 12.5 MG in SODIUM CHLORIDE 0.9% 50ML 50 ML IV PRN ×2 (13:50→20:37)
[2016-11-26] MEDS: LABETALOL HCL IV 5 MG/ML 20ML IV PRN (14:41)
--- NOTE | 2016-11-26 15:01 | ECHOCARDIOGRAM REPORT ---
*NOTICE TO RECEIVING CONSTITUTION PARTY AGENCY This information is strictly Confidential and protected under [place] law. [place] law prohibits you from making any further disclosure of this information unless further disclosure is expressly permitted by the written consent of the person to whom it pertains or is authorized by law. A general authorization for the release of medical or other information is not sufficient for this purpose. Hospital accepts no responsibility if the information is made available to any other person, INCLUDING THE PATIENT. Interpretation Summary * Name: BELL NEWELL Study Date: 11/26/2016 01:02 PM BP: 169/120 mmHg * Patient Location: C.2T\S\S244\S\1 HR: 77 * : 1990 (M/d/yyyy) Gender: Male Height: 70 in * Age: 26 yrs Ethnicity: CA Weight: 208 lb * Ordering Physician: Daniel Andrew * Referring Physician: Self, Referred * Performed By: Sheila Bruner RCS * * Reason For Study: HTN * BSA: 2.1 m2 * -- Conclusions -- * Left ventricular systolic function is normal. * No regional wall motion abnormalities noted. * Ejection Fraction = 65-70%. * There is mild concentric left ventricular hypertrophy. * No significant valvular pathology. Procedure Details * A complete two-dimensional transthoracic echocardiogram was performed (2D, M-mode, Doppler and color flow Doppler). * The study was technically difficult. * There were technical limitations due to patient'spoor positioning * A contrast injection of Definity was performed to improve assessment of LV function. * Contrast was injected into an intravenous site in the right arm. * One vial of Definity ultrasound contrast was diluted in normal saline to a total volume of 10 ml. A total of '1.5' ml of solution was administered during imaging. * Lot # [id number] of Definity utilized for procedure. * Expiration date DEC 04. * The attending nurse who injected the contrast agent was JEAN SHEFFIELD CPL, RN. Left Ventricle * The left ventricle is normal in size. * There is mild concentric left ventricular hypertrophy. * Left ventricular systolic function is normal. * Ejection Fraction = 65-70%. * No regional wall motion abnormalities noted. Right Ventricle * The right ventricle is grossly normal size. * The right ventricular systolic function is normal as assessed by tricuspid annular plane systolic excursion (TAPSE) (normal >1.5 cm). Atria * The left atrial size is normal. * Right atrial size is normal. * There is no evidence of atrial septal defect, but resolution does not allow assessment for a patent foramen ovale. Mitral Valve * The mitral valve is normal in structure and function. * There is no mitral valve stenosis. * Significant mitral regurgitation is absent. Tricuspid Valve * The tricuspid valve anatomy is normal. * There is trace tricuspid regurgitation. Aortic Valve * The aortic valve is normal in structure and function. * No hemodynamically significant valvular aortic stenosis. * There is no significant aortic regurgitation. Pulmonic Valve * The pulmonary valve is not well seen, but the Doppler examination is normal without significant regurgitation or stenosis. * There is no significant pulmonary regurgitation. Great Vessels * The aortic root is normal size. * The pulmonary artery is not well visualized, but is probably normal size. Pericardium/Pleural * There is no pericardial effusion. Great Vessels * Normal inferior vena cava size and collapsability with sniff indicates a normal right atrial pressure of 3 mmHg MMode 2D Measurements and Calculations IVSd 1.1 cm IVSs 1.4 cm LVIDd 4.6 cm LVIDs 3.1 cm LVPWd 1.2 cm LVPWs 1.8 cm IVS/LVPW 0.93 FS 33.0 % EDV(Teich) 95.4 ml ESV(Teich) 36.6 ml EF(Teich) 61.6 % EDV(cubed) 94.8 ml ESV(cubed) 28.5 ml EF(cubed) 69.9 % % IVS thick 29.6 % % LVPW thick 50.8 % LV mass(C)d 186.0 grams LV mass(C)dI 87.6 grams/m\S\2 LV mass(C)s 178.6 grams LV mass(C)sI 84.2 grams/m\S\2 SV(Teich) 58.8 ml SI(Teich) 27.7 ml/m\S\2 SV(cubed) 66.3 ml SI(cubed) 31.2 ml/m\S\2 Ao root diam 3.9 cm Ao root area 12.2 cm\S\2 LA dimension 3.5 cm LA/Ao 0.90 LVOT diam 2.0 cm LVOT area 3.0 cm\S\2 LVAd ap4 29.8 cm\S\2 LVLd ap4 7.8 cm EDV(MOD-sp4) 92.9 ml EDV(sp4-el) 96.4 ml LVAs ap4 18.5 cm\S\2 LVLs ap4 7.9 cm ESV(MOD-sp4) 37.9 ml ESV(sp4-el) 36.8 ml EF(MOD-sp4) 59.2 % EF(sp4-el) 61.8 % LVAd ap2 33.4 cm\S\2 LVLd ap2 8.5 cm EDV(MOD-sp2) 107.0 ml EDV(sp2-el) 111.3 ml LVAs ap2 18.5 cm\S\2 LVLs ap2 7.4 cm ESV(MOD-sp2) 38.7 ml ESV(sp2-el) 39.3 ml EF(MOD-sp2) 63.8 % EF(sp2-el) 64.6 % LVLd %diff 8.0 % EDV(MOD-bp) 104.6 ml LVLs %diff -7.35 % ESV(MOD-bp) 36.5 ml EF(MOD-bp) 65.1 % SV(MOD-sp4) 55.0 ml SI(MOD-sp4) 25.9 ml/m\S\2 SV(MOD-sp2) 68.3 ml SI(MOD-sp2) 32.2 ml/m\S\2 SV(MOD-bp) 68.1 ml SI(MOD-bp) 32.1 ml/m\S\2 SV(sp4-el) 59.6 ml SI(sp4-el) 28.1 ml/m\S\2 SV(sp2-el) 71.9 ml SI(sp2-el) 33.9 ml/m\S\2 Doppler Measurements and Calculations Ao V2 max 165.2 cm/sec Ao max PG 10.9 mmHg Ao max PG (full) 1.9 mmHg SUMA(V,A) 2.7 cm\S\2 SUMA(V,D) 2.7 cm\S\2 LV V1 max PG 9.0 mmHg LV V1 max 150.0 cm/sec PA V2 max 114.2 cm/sec PA max PG 5.2 mmHg
--- NOTE | 2016-11-26 16:11 | Progress Note ---
Subjective Date of Service: Nov 26, 2016. 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 from the prescriptions he was getting in database he had received over 1400 tablets in the past year said he wants to get better, he has a 4 week old daughter that his mother is taking care of, the mother of child wants nothing to do with baby Problem List Medical Problems: (1) [id number] kidney injury Status: Acute (2) Left arm numbness Status: Acute (3) Left arm weakness Status: Acute (4) Left shoulder pain Status: Acute Review of Systems Abdomen: + nausea Musculoskeletal: + joint pain (left shoulder) All Other Systems: Reviewed and Negative Medications Current Inpatient Medications Medications (Trade) Dose Ordered Sig/Bulmaro Route Start Time Stop Time Status Last Admin Dose Admin Chlorzoxazone (Paraflex Tab) 500 mg Q4H PRN PO 11/23/16 17:15 12/23/16 17:14 11/26/16 08:04 500 MG Magnesium Oxide (Mag-Ox Tab) 400 mg DAILY PO 11/24/16 09:00 12/24/16 08:59 Future Hold 11/24/16 07:48 400 MG Verapamil HCl (Calan-Sr Tab) 240 mg DAILY PO 11/24/16 09:00 12/24/16 08:59 11/26/16 08:04 240 MG Potassium Chloride (Klor-Con Tab) 40 meq DAILY PO 11/24/16 09:00 12/24/16 08:59 Future Hold 11/24/16 07:48 40 MEQ Acetaminophen (Tylenol Tab) 650 mg Q4H PRN PO 11/23/16 17:15 12/23/16 17:14 11/24/16 13:30 650 MG Ondansetron HCl (Zofran Inj) 4 mg Q6H PRN IV 11/23/16 17:15 12/23/16 17:14 11/26/16 10:08 4 MG Polyethylene (Miralax Powder Packet) 17 gm DAILY PRN PO 11/23/16 17:15 12/23/16 17:14 Nicotine (Nicoderm Cq 14MG Patch) 1 patch QAM TD 11/24/16 09:00 12/24/16 08:59 Miscellaneous 1 ea 1 ea HS N/A 11/23/16 21:00 12/23/16 20:59 Promethazine HCl/ Sodium Chloride (Phenergan Inj/ Nss 50ml) 50.5 ml @ 204 mls/hr Q6H PRN IV 11/24/16 00:00 12/24/16 00:00 11/26/16 13:50 204 MLS/HR Labetalol HCl (Normodyne IV) 40 mg Q6 PRN IV 11/24/16 12:30 12/24/16 12:29 11/26/16 14:41 40 MG Tapentadol (Nucynta Tab) 50 mg Q4H PRN PO 11/26/16 10:00 12/10/16 09:59 11/26/16 11:51 50 MG Tapentadol (Nucynta Er Tab) 50 mg Q12 PO 11/26/16 21:00 12/26/16 20:59 Furosemide (Lasix Tab) 40 mg QAM PO 11/27/16 09:00 12/27/16 08:59 Labetalol HCl (Normodyne Tab) 400 mg TID PO 11/26/16 14:00 12/26/16 13:59 11/26/16 13:24 400 MG Objective Vital Signs Date Time Temp Pulse Resp B/P Pulse Ox O2 Delivery O2 Flow Rate FiO2 11/26/16 15:46 36.9 96 17 154/91 96 Room Air 152/83 140/92 11/26/16 14:49 152/97 11/26/16 14:37 92 209/99 11/26/16 13:12 Room Air 11/26/16 13:00 36.7 90 17 198/117 95 Room Air 11/26/16 11:00 169/120 11/26/16 10:15 88/60 11/26/16 09:10 182/116 11/26/16 08:00 Room Air 11/26/16 07:40 37.1 69 20 192/116 97 Room Air 11/26/16 04:05 Room Air 11/26/16 04:00 56 11/26/16 02:57 36.9 94 18 156/105 94 Room Air 11/26/16 00:00 Room Air 11/25/16 23:46 36.8 70 18 175/78 96 Room Air 11/25/16 20:05 Room Air 11/25/16 19:36 36.7 93 18 143/92 96 Room Air 11/25/16 17:00 228/130 Physical Exam General Appearance: WD/WN, no apparent distress Eyes: normal inspection, EOMI Neck: supple, no adenopathy, no JVD, trachea midline Respiratory/Chest: chest non-tender, lungs clear, normal breath sounds, no respiratory distress, no accessory muscle use Cardiovascular: regular rate, rhythm, no edema, no gallop, no JVD, no murmur Abdomen: normal bowel sounds, non tender, soft, no organomegaly Extremities: no pedal edema, no calf tenderness, normal capillary refill, pelvis stable, + pertinent finding (left shoulder tender, in sling, decreased ROM) Neurologic/Psychiatric: day guard II-XII nml as tested, no motor/sensory deficits, alert, oriented x 3, + depressed affect Skin: normal color, warm/dry, no rash Laboratory Results Last 24 Hours Test 11/26/16 07:30 11/26/16 09:15 11/26/16 10:20 11/26/16 10:45 Sodium Level 143 mmol/L Potassium Level 3.8 mmol/L Chloride Level 111 mmol/L Carbon Dioxide Level 25 mmol/L Anion Gap 7.0 mmol/L Blood Urea Nitrogen 15 mg/dl Creatinine 2.60 mg/dl Est Creatinine Clear Calc Drug Dose 49.3 ml/min Estimated GFR () 37.5 Estimated GFR (Non- 32.3 BUN/Creatinine Ratio 5.8 Random Glucose 97 mg/dl Calcium Level 8.9 mg/dl Phosphorus Level 2.7 mg/dl Albumin 3.5 gm/dl Bedside Glucose 125 mg/dl Troponin I < 0.015 ng/ml Urine Color YELLOW Urine Appearance CLEAR Urine pH 6.5 Urine Specific [place] 1.009 Urine Protein 2+ Urine Glucose (UA) NEG Urine Ketones NEG Urine Occult Blood TRACE Urine Nitrite NEG Urine Bilirubin NEG Urine Urobilinogen NEG Urine Leukocyte Esterase NEG Urine WBC (Auto) 1-5 /hpf Urine RBC (Auto) 0-4 /hpf Urine Hyaline Casts (Auto) 0 /lpf Urine Epithelial Cells (Auto) 0-5 /lpf Urine Bacteria (Auto) NEG Assessment and Plan 26 yo male with h/o 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 Also, has accelerated HTN and KAITLIN on CKD - Left shoulder injury, reported dislocation: labral injury on MRI, appreciate ortho consult, no plans for intervention cervical MRI, brachial plexus MRI, left shoulder MRI without definitive injury pain and numbness likely explained by traction injury, will be self limiting no further oxycodone due to abuse and selling narcotics, recent rehab but relapsed quickly use Nucynta 50 q4 and 50 ER q12 while in hospital NO IV NARCOTIC TO BE GIVEN keep arm in sling, ice - Accelerated HTN: continue Verapamil, increase Labetalol to 400mg BID but still with hypertension today increase Labetalol to 300mg TID nephrology would like to use VARUN or ARB but patient refuses use labetalol IV PRN - CKD IV from idiopathic membranous nephropathy: follow BMP, appreciate nephrology consult Lasix 40mg PO daily Cr still 2.6, likely new baseline needs to follow up with associate store leader as outpatient - Narcotic abuse: according to database he has filled numerous prescriptions at different locations 1400 pills prescribed in the past 12 months alone will NOT get narcotic prescription on discharge 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
[2016-11-26] MEDS ORDERED: METOCLOPRAMIDE HCL INJ 5 MG/ML 2 ML VIAL IV ONE (18:00)
[2016-11-26] MEDS ORDERED: NURSING VERBAL MED ORDER ONE (18:00)
--- NOTE | 2016-11-26 18:26 | DIAGNOSTIC IMAGING REPORT ---
KUB CLINICAL HISTORY: Nausea and vomiting. Renal failure. COMPARISON STUDY: None. FINDINGS: Bowel gas pattern is normal. There is mild to moderate distention of the stomach. There is suspected ingested material within the stomach. On one image, an electronic device projects over the right lower quadrant. IMPRESSION: 1. No evidence for a bowel obstruction. 2. Mild to moderate distention of the stomach. Electronically signed by: Jhony Perales M.D. 11/26/2016 6:25 PM Dictated Date/Time: 11/26/2016 6:23 PM
[2016-11-26] MEDS: TAPENTADOL ER 50 MG TABCR PO SCH (20:38)
[2016-11-27] VITALS (8 sets, daily range): BP systolic 142–171; BP diastolic 87–107; PULSE 73–90; TEMP 36.7–36.9; O2SAT 95–97
[2016-11-27] MEDS: TAPENTADOL HCL 50 MG TAB PO PRN (03:48)
[2016-11-27 07:35] LABS: BUN/CREATININE RATIO 5.8 (10-20); CALCIUM 8.6 mg/dl (8.5-10.1); CREATININE 2.9 mg/dl (0.60-1.40); PHOSPHORUS 3.4 mg/dl (2.5-4.9); POTASSIUM 4.7 mmol/L (3.5-5.1)
[2016-11-27] MEDS: LABETALOL HCL 200 MG TAB PO SCH ×2 (08:45→14:08)
[2016-11-27] MEDS: VERAPAMIL HCL 240 MG TABCR PO SCH (08:45)
[2016-11-27] MEDS: NICOTINE 14 MG/24 HR TDSY TD SCH (08:46)
[2016-11-27] MEDS: TAPENTADOL ER 50 MG TABCR PO SCH (08:50)
[2016-11-27] MEDS ORDERED: FUROSEMIDE 40 MG TAB PO SCH (09:00)
[2016-11-27] MEDS ORDERED: SODIUM CHLORIDE 0.9% 1000ML 1,000 ML IV SCH (10:45)
--- NOTE | 2016-11-27 10:47 | Nephrology Progress Note ---
Nephrology Progress Note Date of Service Nov 27, 2016. Chief Complaint KAITLIN/CKD Subjective Mr. Alba states that he feels well this morning. Shoulder pain is improving. He is very hopeful that he can be discharged this afternoon. Blood pressure is acceptable. He is voiding urine without difficulty. Appetite improved. Nausea also improved. He denies abdominal pain. He is ambulating in his room without difficulty. Review of Systems A complete review of systems was performed. Pertinent positives are noted above. All other systems are negative. Vital Signs Last 8 Hrs Date Time Temp Pulse Resp B/P Pulse Ox O2 Delivery O2 Flow Rate FiO2 11/27/16 09:40 155/98 11/27/16 08:30 74 161/107 90 171/97 11/27/16 08:00 36.7 73 20 157/92 96 Room Air 11/27/16 04:00 Room Air 11/27/16 04:00 36.8 87 18 142/92 96 Room Air I & O 24-Hour Column 11/27/16 07:59 Intake Total 1168 ml Output Total 3450 ml Balance -2282 ml Last Recorded Weight Weight (Kilograms): 95.300 Physical Exam General Appearance: WD/WN, no apparent distress Head: normocephalic, atraumatic Eyes: normal inspection, sclerae normal ENT: normal ENT inspection, pharynx normal Neck: supple, no JVD Respiratory/Chest: lungs clear, no respiratory distress, no accessory muscle use Cardiovascular: regular rate, rhythm, no gallop, no murmur Abdomen/GI: non tender, soft Extremities/Musculoskelatal: normal inspection, no pedal edema Neurologic/Psych: alert, oriented x 3 Social History Marital Status: single Occupation: unemployed Laboratory Results Past 24 Hours 11/27/16 06:28 Test 11/26/16 10:45 11/27/16 06:28 Urine Color YELLOW Urine Appearance CLEAR (CLEAR) Urine pH 6.5 (4.5-7.5) Urine Specific [place] 1.009 (1.000-1.030) Urine Protein 2+ (NEG) Urine Glucose (UA) NEG (NEG) Urine Ketones NEG (NEG) Urine Occult Blood TRACE (NEG) Urine Nitrite NEG (NEG) Urine Bilirubin NEG (NEG) Urine Urobilinogen NEG (NEG) Urine Leukocyte Esterase NEG (NEG) Urine WBC (Auto) 1-5 /hpf (0-5) Urine RBC (Auto) 0-4 /hpf (0-4) Urine Hyaline Casts (Auto) 0 /lpf (0-5) Urine Epithelial Cells (Auto) 0-5 /lpf (0-5) Urine Bacteria (Auto) NEG (NEG) Anion Gap 11.0 mmol/L (3-11) Est Creatinine Clear Calc Drug Dose 44.3 ml/min Estimated GFR () 32.9 Estimated GFR (Non- 28.3 BUN/Creatinine Ratio 5.8 (10-20) Calcium Level 8.6 mg/dl (8.5-10.1) Phosphorus Level 3.4 mg/dl (2.5-4.9) Albumin 3.3 gm/dl (3.4-5.0) Allergies Coded Allergies: Cefaclor (Verified Allergy, Unknown, ., 11/23/16) Codeine (Verified Allergy, Unknown, ., 11/23/16) Ketorolac Tromethamine (Verified Allergy, Unknown, ., 11/23/16) Penicillins (Verified Allergy, Unknown, ., 11/23/16) Tramadol (Verified Allergy, Unknown, ., 11/23/16) Medications Current Inpatient Medications Medications (Trade) Dose Ordered Sig/Bulmaro Route Start Time Stop Time Status Last Admin Dose Admin Chlorzoxazone (Paraflex Tab) 500 mg Q4H PRN PO 11/23/16 17:15 12/23/16 17:14 11/26/16 08:04 500 MG Magnesium Oxide (Mag-Ox Tab) 400 mg DAILY PO 11/24/16 09:00 12/24/16 08:59 Future Hold 11/24/16 07:48 400 MG Verapamil HCl (Calan-Sr Tab) 240 mg DAILY PO 11/24/16 09:00 12/24/16 08:59 11/27/16 08:45 240 MG Potassium Chloride (Klor-Con Tab) 40 meq DAILY PO 11/24/16 09:00 12/24/16 08:59 Future Hold 11/24/16 07:48 40 MEQ Acetaminophen (Tylenol Tab) 650 mg Q4H PRN PO 11/23/16 17:15 12/23/16 17:14 11/24/16 13:30 650 MG Ondansetron HCl (Zofran Inj) 4 mg Q6H PRN IV 11/23/16 17:15 12/23/16 17:14 11/26/16 17:34 4 MG Polyethylene (Miralax Powder Packet) 17 gm DAILY PRN PO 11/23/16 17:15 12/23/16 17:14 Nicotine (Nicoderm Cq 14MG Patch) 1 patch QAM TD 11/24/16 09:00 12/24/16 08:59 Miscellaneous 1 ea 1 ea HS N/A 11/23/16 21:00 12/23/16 20:59 Promethazine HCl/ Sodium Chloride (Phenergan Inj/ Nss 50ml) 50.5 ml @ 204 mls/hr Q6H PRN IV 11/24/16 00:00 12/24/16 00:00 11/26/16 20:37 204 MLS/HR Labetalol HCl (Normodyne IV) 40 mg Q6 PRN IV 11/24/16 12:30 12/24/16 12:29 11/26/16 14:41 40 MG Tapentadol (Nucynta Tab) 50 mg Q4H PRN PO 11/26/16 10:00 12/10/16 09:59 11/27/16 03:48 50 MG Tapentadol (Nucynta Er Tab) 50 mg Q12 PO 11/26/16 21:00 12/26/16 20:59 11/27/16 08:50 50 MG Labetalol HCl (Normodyne Tab) 400 mg TID PO 11/26/16 14:00 12/26/16 13:59 11/27/16 08:45 400 MG Impression (1) [id number] kidney injury (2) Hypertensive emergency (3) Chronic renal disease, stage IV (4) Left arm weakness (5) Left shoulder pain (6) Left arm numbness Temo is a 26-year-old male with primary membranous nephropathy and CKD. Prior treatment had included Rituxan as well as tacrolimus. Most recently has been maintained on CellCept. Medical history also notable for hypertension. He was not able to tolerate RAAS blockade in the past due to worsening renal function by his report. Renal artery duplex negative for LISA. He describes a history of stroke associated with accelerated hypertension. He is a smoker. He presented with a fall on outstretched hand resulting in left shoulder dislocation which following reduction resulted in pain and weakness of left upper extremity. He has unfortunately suffered nausea and occasional vomiting since admission. Overall, symptomatically improved today but unfortunately renal function slightly worse. Blood pressure and volume status currently acceptable. Suspect increase in creatinine is related to furosemide. Temo is very hopeful that he can be discharged today. We discussed the trend of his renal function and the need for close follow up. I suggested he increase fluid intake and prove that his nausea and vomiting have resolved ant that he can tolerated adequate oral intake. I will give him a liter of normal saline and repeat partial renal profile this afternoon. Hold furosemide for now. Plan of care discussed with Dr. Andrew. UA notable for 2+ protein, 1-5 WBC, no RBCs. No LISA on duplex. Outpatient follow up scheduled with Dr. Way for December 17. Appropriate to restart CellCept 1000 mg BID. Repeat renal profile and CBC within 1 week of discharge (records can be faxed to my office at [phone]). Recommendations -- Continue verapamil 240 mg daily -- Labetalol 400 mg TID -- Hold furosemide -- 1000 ml 0.9% saline -- No VARUN/ARB at this time -- Repeat renal profile this afternoon -- Restart CellCept 1000 mg BID -- Check CBC + renal profile within 1 week of discharge (fax results to my office at [phone]) -- Medications appropriately dosed for renal function
[2016-11-27] MEDS ORDERED: TAPE1TAB9 PO (14:38)
[2016-11-27] MEDS ORDERED: LBT200 PO (14:38)
[2016-11-27] MEDS ORDERED: TAPE50TA5 PO (14:38)
[2016-11-27 14:41] LABS: BUN/CREATININE RATIO 6.5 (10-20); CALCIUM 8.6 mg/dl (8.5-10.1); POTASSIUM 4.2 mmol/L (3.5-5.1)
--- NOTE | 2016-11-27 14:44 | Discharge Instructions ---
Discharge Instructions Admission Reason for Admission: Hypertensive emergency Discharge Discharge Diagnosis / Problem: Hypertensive emergency, CKD stage IV, brachial plexus traction injury Discharge Goals Goal(s): Improve function, Improve disease control, Specific goals (follow up with telehealth coordinator December 17) Activity Recommendations Activity Limitations: resume your previous activity Lifting Limitations: gradually increase as tolerated Exercise/Sports Limitations: as tolerated May Resume Sexual Activity: when tolerated Shower/Bathe: no limitations Driving or Machine Use: no limitations . Instructions / Follow-Up Instructions / Follow-Up Medications: - LABETALOL: new blood pressure medication that you will take in addition to the Verapamil, take 400mg (2 tablets) three times a day - CELLCEPT: okay to resume taking 1000mg twice a day, provided with a new script - NUCYNTA: take the extended release twice a day and use the short acting as needed, left shoulder pain should resolve over next several days as nerves and ligaments recover from traction Left shoulder pain: due to dislocation which has resolved, keep in sling for 3 more days but frequently move around, ice several times a day, try to gradually increase range of motion Left arm numbness: due to traction (stretching) of the nerves in arm and shoulder when the shoulder dislocated, will take several days to a week to improve but should regain full sensation. Numerous imaging studies including MRI of the cervical spine, left shoulder, brachial plexus failed to reveal any significant injury that would be causing the symptoms Please get a CBC and BMP within one week after discharge and fax results to office of Dr. Temple at [phone] FOLLOW UP - very important that you keep your follow up appointment with your Injection Moulding Machine Operator December 17, your renal function has declined slightly over the past year, new baseline is 2.5-2.9 if you move to the [facility], you can call the office of Dr. Temple ( nephrology) at [phone] Current Hospital Diet Patient's current hospital diet: Regular Diet Discharge Diet Recommended Diet: Renal Diet Procedures Procedures Performed: MRI cervical spine, left shoulder, brachial plexus - no significant injury Echocardiogram: normal heart function, normal valves Renal doppler - no renal artery stenosis Pending Studies Studies pending at discharge: no Laboratory Results Last Resulted CBC 11/24/16 06:53 Red Blood Count 5.71, Mean Corpuscular Volume 81.6, Mean Corpuscular Hemoglobin 28.0, Mean Corpuscular Hemoglobin Concent 34.3, Mean Platelet Volume 10.6, Neutrophils (%) (Auto) 73.8, Lymphocytes (%) (Auto) 14.1, Monocytes (%) (Auto) 9.8, Eosinophils (%) (Auto) 1.8, Basophils (%) (Auto) 0.2, Neutrophils # (Auto) 8.43, Lymphocytes # (Auto) 1.61, Monocytes # (Auto) 1.12, Eosinophils # (Auto) 0.21, Basophils # (Auto) 0.02 Last Resulted BMP 11/27/16 14:11 Medical Emergencies . Who to Call and When: Medical Emergencies: If at any time you feel your situation is an emergency, please call 911 immediately. . Non-Emergent Contact Non-Emergency issues call your: Primary Care Provider Call Non-Emergent contact if: your pain is not controlled, your pain is worsening, your pain is concerning you, you have any medication questions . . "Provider Documentation" section prepared by Daniel Andrew. VTE Core Measure Inpt VTE Proph given/why not?: [facility] [place] Drug Monitoring Program Search Results: patient reviewed within database Drug Monitoring Findings: numerous scripts filled, 1400 tablets total in the past year from numerous prescribers and different pharmacies used no scripts will be given for narcotics
--- NOTE | 2016-11-27 15:28 | Discharge Summary ---
Discharge Summary Admission Date: Nov 23, 2016 at 17:14 Discharge Date: Nov 27, 2016 Discharge Disposition: Home Principal Diagnosis: Hypertensive urgency Problems/Secondary Diagnoses: CKD stage IV, worsening Idiopathic membranous nephropathy Left shoulder dislocation with traction injury Procedures: MRI cervical spine - normal MRI left shoulder - small labral tear, no significant injuries MRI left brachial plexus - no injuries Echocardiogram - EF 65-70%, no valve disease Renal doppler - no renal artery stenosis Consultations: Nephrology Neurology Orthopedic surgery Medication Reconciliation New Medications: Mycophenolate Mofetil (Cellcept) 500 Mg Tab 2 TAB PO BID for 90 Days, #360 TAB 3 Refills Tapentadol Hcl (Nucynta) 50 Mg Tab 50 MG PO Q4, #30 TAB Tapentadol Hcl (Nucynta Er) 50 Mg Tab 50 MG PO Q12 for 7 Days, #14 TABS 0 Refills Labetalol HCl (Labetalol HCl) 200 Mg Tab 400 MG PO TID, #180 TAB 3 Refills Continued Medications: Chlorzoxazone (Parafon Forte Dsc) 500 Mg Tab 500 MG PO Q4H PRN for Muscle Spasms, TAB Magnesium Oxide (Mag-Ox) 400 Mg Tab 400 MG PO DAILY, TAB Verapamil HCl (Verapamil HCl ER) 240 Mg Tabcr 240 MG PO DAILY Discharge Exam Patient feeling better today, less shoulder pain, no nausea, eating better. Motivated to leave today. Cr went up to 2.9, discussed with Dr. Temple, gave fluid challenge and repeated labs in the afternoon and Cr 3.0. Most likely due to Lasix 40mg IV daily. Patient making excellent urine, electrolytes stable. He says he will get repeat labs as outpatient with results to Dr. Temple. Review of Systems: Constitutional: No chills, No fatigue, No fever, No problem reported, No sweats, No weakness, No weight loss Eyes: No diplopia, No discharge, No eye pain, No problem reported, No redness, No worsening of vision ENT: No dental problems, No hearing loss, No nasal symptoms, No problem reported, No sore throat, No tinnitus, No trouble swallowing, No unusual epistaxis Respiratory: No cough, No dyspnea at rest, No dyspnea on exertion, No hemoptysis, No problem reported, No shortness of breath, No sputum, No wheezing Cardiovascular: No PND, No chest pain, No claudication, No edema, No orthopnea, No palpitations, No problem reported Abdomen: No GI bleeding, No constipation, No diarrhea, No nausea, No pain, No problem reported, No vomiting Musculoskeletal: + joint pain (left shoulder, better), No calf pain, No muscle pain, No problem reported, No swelling Genitourinary - Male: No dysuria, No hematuria, No urinary frequency, No urinary urgency Neurologic: + numbness/tingling (left lower arm, global, no real change), No balance problems, No memory loss, No paralysis, No problem reported, No vertigo, No weakness Psychiatric: No anhedonism, No anxiety, No depression symptoms, No insomnia , No problem reported, No substance abuse Endocrine: No excessive thirst, No excessive urination, No fatigue, No problem reported Hematologic / Lymphatic: No abnormal bleeding/bruising, No clotting problems , No night sweats, No problem reported, No swollen lymph nodes Integumentary: No bleeding, No color change, No itch, No new/changing skin lesions, No problem reported, No rash Physical Exam: General Appearance: WD/WN, no apparent distress Eyes: normal inspection, EOMI, sclerae normal ENT: normal ENT inspection, hearing grossly normal, pharynx normal Neck: supple, no adenopathy, no JVD, trachea midline Respiratory/Chest: chest non-tender, lungs clear, normal breath sounds, no respiratory distress, no accessory muscle use Cardiovascular: regular rate, rhythm, no edema, no gallop, no JVD, no murmur , normal peripheral pulses Abdomen / GI: normal bowel sounds, non tender, soft, no organomegaly Extremities: normal inspection, no calf tenderness, normal capillary refill , no pedal edema, + pertinent finding (left shoulder with decreased ROM due to pain) Neurologic/Psychiatric: 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 Also, has accelerated HTN and KAITLIN on CKD - Left shoulder injury, reported dislocation: labral injury on MRI, appreciate ortho consult, no plans for intervention cervical MRI, brachial plexus MRI, left shoulder MRI without definitive injury pain and numbness likely explained by traction injury, will be self limiting no further oxycodone due to abuse and selling narcotics, recent rehab but relapsed quickly use Nucynta 50 q4 and 50 ER q12 while in hospital, prescription provided on discharge for 7 days worth, pain should be self limiting NO IV NARCOTIC TO BE GIVEN keep arm in sling, ice several times a day, increase activity as tolerated and should be out of sling in a few days - Accelerated HTN: continue Verapamil, increase Labetalol to 400mg TID and pressures adequately controlled should follow up with soap boiler - CKD IV from idiopathic membranous nephropathy: follow BMP, appreciate nephrology consult Cr rising to 2.9 and then 3.0, making more than enough urine, electrolytes stable possibly due to Lasix use, stop Lasix on discharge, also stop the potassium supplement script given for weekly BMP, Mg and Phos with results to Dr. Temple until he can establish care with Dr. 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 Dr. Temple has made himself available for follow up if the patient needs to be seen before 12/17. Total Time Spent: Greater than 30 minutes This includes examination of the patient, discharge planning, medication reconciliation, and communication with other providers. Discharge Instructions Please refer to the electronic Patient Visit Report (Discharge Instructions) for additional information. Follow-Up Dr. Way 12/17 Can follow up with Dr. Temple if needed Additional Copies To Mukund Way M.D.; Rai Temple D.O.
== END 2016-11-27 15:55 | disposition home or self-care (01) | DRG 683 ==
LOC: ENRESERVTM → ENRESERVDT → C.EDB 13:02 → C.2T 17:14
PROVIDERS: ADMIT Hospitalist; ATTEND Internal Medicine
DX: N17.9 Acute kidney failure, unspecified (principal); I16.1 Hypertensive emergency; I69.354 Hemiplegia and hemiparesis following cerebral infarction affecting left non-dominant side; N02.2 Recurrent and persistent hematuria with diffuse membranous glomerulonephritis; N18.4 Chronic kidney disease, stage 4 (severe); S43.005A Unspecified dislocation of left shoulder joint, initial encounter; S43.432A Superior glenoid labrum lesion of left shoulder, initial encounter; R20.0 Anesthesia of skin; W10.9XXA Fall (on) (from) unspecified stairs and steps, initial encounter; I10 Essential (primary) hypertension; F11.10 Opioid abuse, uncomplicated; M54.5 Low back pain; M25.552 Pain in left hip; F17.210 Nicotine dependence, cigarettes, uncomplicated; Z87.828 Personal history of other (healed) physical injury and trauma; Z79.899 Other long term (current) drug therapy; Z88.0 Allergy status to penicillin; Z88.1 Allergy status to other antibiotic agents; Z88.5 Allergy status to narcotic agent; Z88.6 Allergy status to analgesic agent; Z82.49 Family history of ischemic heart disease and other diseases of the circulatory system; Z83.3 Family history of diabetes mellitus